=== PATIENT | female | born 2000 | race Caucasian/White ===

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

== ENCOUNTER 2022-04-10 13:47 | Outpatient (CLI) | payer BC, SELFPAY ==
[2022-04-10 16:59] LABS: Hepatitis B Surface Antigen* Negative (Negative)
[2022-04-10 17:08] LABS: HIV 1/2/P24 Combo Screen* Negative (Negative)
[2022-04-10 17:17] LABS: Hepatitis C Virus Antibody* Negative (Negative)
[2022-04-10 18:28] LABS: Chlamydia DNA Amplified* NOT DETECTED (No Detected); GC DNA Amplified* NOT DETECTED (No Detected)
[2022-04-13 00:54] LABS: Rapid Plasma Reagin (RPR) Non Reactive (Non Reactive)
== END 2022-04-10 13:48 | disposition home or self-care (01) ==
PROVIDERS: PCP Family Medicine; Visit Provider Registered Nurse
DX: Z11.3 Encounter for screening for infections with a predominantly sexual mode of transmission (principal); Z11.4 Encounter for screening for human immunodeficiency virus [HIV]
CPT/HCPCS: 86592; 86703; 86803; 87340; 87491; 87591

== ENCOUNTER 2023-02-25 10:49 | Emergency (ER) | payer BC, SELFPAY ==
[2023-02-25 10:56] VITALS: BP 116/87; PULSE 95; RESP 18; TEMP 37.2; O2SAT 98; BMI 21.3
--- NOTE | 2023-02-25 11:59 | ED_ITS ---
HPI - Abdominal Pain General Time Seen by Provider: 11:40 <Niyah Tinajero - Last Filed: 02/25/23 15:24> Date Seen: 02/25/23 <Niyah Tinajero - Kaden Filed: 02/25/23 15:24> Chief Complaint: Abdominal Pain <Niyah Tinajero - Last Filed: 02/25/23 15:24> Stated Complaint: Abdominal pain <Niyah Tinajero - Last Filed: 02/25/23 15:24> Time Seen by Provider: 02/25/23 10:58 <Niyah Tinajero - Last Filed: 02/25/23 15:24> Source: patient <Niyah Alfonso Filed: 02/25/23 15:24> Mode of arrival: ambulatory <Niyah Alfonso Filed: 02/25/23 15:24> Limitations: no limitations <Niyah Alfonso Filed: 02/25/23 15:24> History of Present Illness HPI narrative: Patient is a 22-year-old female presenting with left upper quadrant abd ominal pain radiating to the epigastric region beginning 12 hours ago, which has since progressively worsened this morning at 0600 with associated nausea, fatigue, subjective fevers, and chills. She tried eating this morning, but was not able to due to her nausea. Patient describes the pain as sharp and notes it radiates up into her chest making it difficult for her to take a deep breath. She has not taken any medication for her symptoms. She states ?laying in the position makes it feel better?. Patient has history of mucus in her stools and notes one episode of hematochezia last night approximately 10 hours ago. She states she feels constipated. Patient has history of chlamydia and syphilis which was treated 2 years ago. She is currently sexually active her last menstrual period was 1 week ago. She has an upcoming appointment on April 21 with [facility]. She denies any unexpected weight loss, vomiting, hematemesis, diarrhea, urinary urgency, frequency, vaginal discharge, rashes, dysuria, or any other complaints at this time. Patient drinks four glasses of wine and/or beer nightly and smokes 2 vapes a week since her mother 6 months ago. She has a history of anxiety and is medicated on Lexapro and hydroxyzine. <Niyah Tinajero - Last Filed: 02/25/23 15:24> Related Data Date of last menstrual period: 02/10/23 <Niyah Scopis Filed: 02/25/23 15:24> Patient : No <Niyah Tinajero [employer] Filed: 02/25/23 15:24> Home Medications: Home Medications Medication Instructions Recorded Confirmed etonogestrel 68 mg subdermal 1 implant subdermal ONCE 04/10/22 01/19/23 implant (Nexplanon) escitalopram oxalate 10 mg tablet 10 mg PO DAILY 01/19/23 01/19/23 hydroxyzine HCl 25 mg tablet mg PO 01/19/23 01/19/23 Previous Rx's Medication Instructions Recorded norethindrone (contraceptive) 0.35 0.35 mg PO QDAY #84 tabs 06/27/22 mg tablet (Ngozi) esomeprazole magnesium 20 mg 20 mg PO DAILY #30 caps 02/25/23 capsule,delayed release promethazine 25 mg tablet 25 mg PO TID #15 tabs 02/25/23 <Niyah Scopis Filed: 02/25/23 15:24> Allergies/Adverse Reactions: Allergies Allergy/AdvReac Type Severity Reaction Status Date / Time adhesive Allergy Unknown Rash Verified 02/25/23 14:35 latex Allergy Unknown Rash Verified 02/25/23 14:35 <Niyah Scopis Filed: 02/25/23 15:24> Review of Systems Const Reports: fever, chills, fatigue and malaise; Denies: change in weight <Niyah Scopis Filed: 02/25/23 15:24> GI Reports: abdominal pain, nausea, heartburn, constipation, blood in stool, mucus in stool and fatty stool; Denies: vomiting or diarrhea <Niyah Scopis Filed: 02/25/23 15:24> Denies: painful urination, urinary frequency, urinary urgency, urinary incontinence, blood in urine, difficulty voiding, vaginal bleeding, vaginal discharge or genital itching <Niyah Scopis Filed: 02/25/23 15:24> Musculo Denies: back pain <[facility] Filed: 02/25/23 15:24> Integ/Breast Denies: rash <[facility] Filed: 02/25/23 15:24> Neuro Reports: headache and dizziness <Niyah Tinajero - Last Filed: 02/25/23 15:24> Endo Reports: fatigue <Niyah Tinajero - Last Filed: 02/25/23 15:24> [facility] Medical History: Medical History Purposeful non-suicidal drug ingestion (2019) ?T50.902A - Poisoning by unspecified drugs, medicaments and biological substances, intentional self-harm, initial encounter (ICD-10) Migraine headache ?G43.909 - Migraine, unspecified, not intractable, without status migrainosus (ICD-10) Depression ?F32.A - Depression, unspecified (ICD-10) Asthma ?J45.909 - Unspecified asthma, uncomplicated (ICD-10) Anxiety ?F41.9 - Anxiety disorder, unspecified (ICD-10) History of sexually transmitted disease (11/24/20) ?Z86.19 - Personal history of other infectious and parasitic diseases (ICD- 10) <Niyah Tinajero - Last Filed: 02/25/23 15:24> Surgical History: Surgical History History of nasal septoplasty (03/28/17) ?Z98.890 - Other specified postprocedural states (ICD-10) History of tonsillectomy and adenoidectomy (03/28/17) ?Z90.89 - Acquired absence of other organs (ICD-10) <Niyah Tinajero - Last Filed: 02/25/23 15:24> Social History: Social History Smoking Status: Current every day smoker Do you use any of these nicotine containing products: E-Cigarettes Second hand tobacco smoke exposure: No How often do you have a drink containing alcohol: monthly or less How many standard drinks containing alcohol do you have on a typical day: 3 or 4 How often do you have six or more drinks on one occasion: Less than monthly AUDIT-C Alcohol total score: 3 Non-prescribed substance use: denies use service: No <Niyah Tinajero - Last Filed: 02/25/23 15:24> Exam Const: Vital Signs, click to edit/add: Vital Signs - 24 hr 02/25/23 10:56 02/25/23 13:27 02/25/23 16:18 Temperature 99 F Pulse Rate [Pulse Oximeter] 95 89 84 Respiratory Rate 18 16 Blood Pressure [Ri ght Upper Arm] 116/87 116/81 Pulse Oximetry 98 97 99 Oxygen Delivery Me thod Room Air Room Air Room Air <[facility] Last Filed: 02/25/23 15:24> Vital Signs, click to edit/add: Vital Signs - 24 hr 02/25/23 10:56 02/25/23 13:27 02/25/23 16:18 Temperature 99 F Pulse Rate [Pulse Oximeter] 95 89 84 Respiratory Rate 18 16 Blood Pressure [Ri ght Upper Arm] 116/87 116/81 Pulse Oximetry 98 97 99 Oxygen Delivery Me thod Room Air Room Air Room Air <Riley Odell MD - Last Filed: 02/25/23 16:57> Documenting provider has reviewed patient's vital signs: yes <[facility] Last Filed: 02/25/23 15:24> Common normals: no apparent distress, average body habitus, oriented x3 and alert <[facility] Last Filed: 02/25/23 15:24> General appearance: cooperative <[facility] Last Filed: 02/25/23 15:24> Nutritional appearance: thin <[facility] Filed: 02/25/23 15:24> HENMT: Common normals: normocephalic, head/scalp atraumatic, hearing grossly normal bilaterally, external ears normal, external nose normal, nasal mucous membranes and turbinates normal, oropharynx normal, dentition normal and gingiva normal; oral mucous membranes not moist (dry mucous membranes) <[facility] Last Filed: 02/25/23 15:24> Head and scalp: normocephalic and atraumatic <[facility] Last Filed: 02/25/23 15:24> Nose: external nose normal and nasal mucous membranes and turbinates normal <[facility] Last Filed: 02/25/23 15:24> External ear: external ears normal <[facility] Last Filed: 02/25/23 15:24> Eye: General eye: normal appearance of both eyes <Niyah KakaMobi Filed: 02/25/23 15:24> Neck & C-Spine: Common normals: no JVD <Niyah KakaMobi Filed: 02/25/23 15:24> Lymph: Lymphatic: no lymphadenopathy noted <[facility] Filed: 02/25/23 15:24> Resp: Common normals: normal respiratory effort, no retractions, no use of accessory muscles, clear to auscultation bilaterally and percussion normal <[facility] Filed: 02/25/23 15:24> Auscultation: clear to auscultation bilaterally <[facility] - Filed: 02/25/23 15:24> Percussion: percussion normal <[facility] Filed: 02/25/23 15:24> Cardio: Common normals: no JVD, regular rhythm, S1 normal heart sound, S2 normal heart sound, no gallops, no clicks, no murmurs, no rub and peripheral pulses 2+ throughout <Niyah KakaMobi Filed: 02/25/23 15:24> Rate: tachycardic <Niyah Filed: 02/25/23 15:24> Rhythm: regular rhythm <Niyah Filed: 02/25/23 15:24> Heart sounds: S1 normal and S2 normal <[facility] Filed: 02/25/23 15:24> Peripheral pulses: pulses 2+ throughout <Niyah KakaMobi Filed: 02/25/23 15:24> GI: Common normals: Normal to inspection, nondistended, normoactive bowel sounds present and soft to palpation <Niyah Scopis Filed: 02/25/23 15:24> Inspection: normal to inspection <Niyah Scopis Filed: 02/25/23 15:24> Auscultation: normoactive bowel sounds <Niyah Scopis Filed: 02/25/23 15:24> Palpation: soft and tender Details: epigastric and LUQ; not McBurney's point, not periumbilical, negative for obturator sign and negative for Rovsing's sign; no guarding, not rigid and no rebound tenderness present <Niyah Gall - Last Filed: 02/25/23 15:24> Percussion: normal to percussion <Niyah Gall - Last Filed: 02/25/23 15:24> : Common normals: no CVA tenderness <Niyah Gall - Last Filed: 02/25/23 15:24> Bladder/kidney exam: no CVA tenderness <Niyah Gall - Last Filed: 02/25/23 15:24> Back & Pelvis: Common normals: no CVA tenderness <Niyah Gall - Last Filed: 02/25/23 15:24> Neuro: Common normals: oriented x3 <Niyah [facility] - Last Filed: 02/25/23 15:24> Sensorium/orientation: alert <Niyah [facility] - Last Filed: 02/25/23 15:24> Speech: speech normal <Niyah Gall - Last Filed: 02/25/23 15:24> Psych: Common normals: mental status grossly normal, thought process normal, cooperative, affect normal, speech normal, activity/motor behavior normal, denies homicidal ideation and denies suicidal ideation <Niyah Gall - Last Filed: 02/25/23 15:24> Speech: normal speech <Niyah [facility] - Last Filed: 02/25/23 15:24> Thought process: normal thought process <Niyah Gall - Last Filed: 15:24> Skin: Common normals: no rashes or lesions noted <Niyah [facility] - Last Filed: 02/25/23 15:24> General skin exam: no rashes or lesions noted <Niyah [facility] - Last Filed: 02/25/23 15:24> Course Course ED Course: 11:15 - Patient evaluated by GLENN Finney. <Niyah [facility] - Last Filed: 02/25/23 15:24> Reevaluation(s) Time of Reevaluation #1: 14:03 <Riley Odell MD - Last Filed: 02/25/23 16:57> Reevaluation #1: Patient feelling better, still some pain, seems to have gone a little lower, agreed to proceed with CT. Discussed labs and current thinking. <Riley Odell MD - Last Filed: 02/25/23 16:57> Time of Reevaluation #2: 15:03 <Riley Odell MD - Last Filed: 02/25/23 16:57> Reevaluation #2: I spoke with the patient the CT scan showed no acute findings, she has a right-sided corpus luteum cyst, which is normal. Also lots of constipation, at this point I think home rest use of fluids, some MiraLax, and some Prilosec if there is a cast straight is type component, stopping alcohol or least decreasing it would also be appropriate and she was comfortable With this. We discussed follow-up, with her primary care physician and signs and symptoms of worsening which she should come back to the emergency room. <Riley Odell MD - Last Filed: 02/25/23 16:57> Vital Signs Vital signs: Initial Vital Signs Temperature 99 F 02/25/23 10:56 Temperature Source Temporal Artery Scan 02/25/23 10:56 Pulse Rate 95 02/25/23 10:56 Pulse Rhythm Regular 02/25/23 10:56 Respiratory Rate 18 02/25/23 10:56 Blood Pressure 116/87 02/25/23 10:56 Blood Pressure Mean 96 02/25/23 10:56 Blood Pressure Position Supine 02/25/23 10:56 Pulse Oximetry 98 02/25/23 10:56 Oxygen Delivery Method Room Air 02/25/23 10:56 Vital Signs Temperature 99 F 02/25/23 10:56 Pulse Rate 95 02/25/23 10:56 Respiratory Rate 18 02/25/23 10:56 Blood Pressure 116/87 02/25/23 10:56 Pulse Oximetry 98 02/25/23 10:56 Oxygen Delivery Method Room Air 02/25/23 10:56 Temperature 99 F 02/25/23 10:56 Pulse Rate 84 02/25/23 16:18 Respiratory Rate 16 02/25/23 16:18 Blood Pressure 116/81 02/25/23 16:18 Pulse Oximetry 99 02/25/23 16:18 Oxygen Delivery Method Room Air 02/25/23 16:18 <Niyah Tinajero - Last Filed: 02/25/23 15:24> Initial Vital Signs Temperature 99 F 02/25/23 10:56 Temperature Source Temporal Artery Scan 02/25/23 10:56 Pulse Rate 95 02/25/23 10:56 Pulse Rhythm Regular 02/25/23 10:56 Respiratory Rate 18 02/25/23 10:56 Blood Pressure 116/87 02/25/23 10:56 Blood Pressure Mean 96 02/25/23 10:56 Blood Pressure Position Supine 02/25/23 10:56 Pulse Oximetry 98 02/25/23 10:56 Oxygen Delivery Method Room Air 02/25/23 10:56 Vital Signs Temperature 99 F 02/25/23 10:56 Pulse Rate 95 02/25/23 10:56 Respiratory Rate 18 02/25/23 10:56 Blood Pressure 116/87 02/25/23 10:56 Pulse Oximetry 98 02/25/23 10:56 Oxygen Delivery Method Room Air 02/25/23 10:56 Temperature 99 F 02/25/23 10:56 Pulse Rate 84 02/25/23 16:18 Respiratory Rate 16 02/25/23 16:18 Blood Pressure 116/81 02/25/23 16:18 Pulse Oximetry 99 02/25/23 16:18 Oxygen Delivery Method Room Air 02/25/23 16:18 <Riley Odell MD - Last Filed: 02/25/23 16:57> Medications Administered Medications: Discontinued Medications Generic Name Dose Route Start Last Admin Trade Name Freq PRN Reason Stop Dose Admin Sodium Chloride 1,000 mls @ 1,000 mls/hr 02/25/23 12:15 02/25/23 13:04 0.9 % Sodium Chloride 1000 Ml IV 02/25/23 13:14 Infused .Q1H AMIRA Infusion Sodium Chloride 1,000 mls @ 1,000 mls/hr 02/25/23 12:15 02/25/23 13:56 0.9 % Sodium Chloride 1000 Ml IV 02/25/23 13:14 Infused .Q1H AMIRA Infusion Morphine Sulfate 2 mg 02/25/23 12:01 02/25/23 12:38 Morphine 2 Mg/Ml Inj IVP 02/25/23 12:02 2 mg ONCE ONE Administration Morphine Sulfate 2 mg 02/25/23 13:46 02/25/23 13:54 Morphine 2 Mg/Ml Inj IVP 02/25/23 13:47 2 mg ONCE ONE Administration Ondansetron HCl 4 mg 02/25/23 12:01 02/25/23 12:38 Ondansetron 2 Mg/Ml Inj IVP 02/25/23 12:02 4 mg ONCE ONE Administration Pantoprazole Sodium 40 mg 02/25/23 12:01 02/25/23 12:38 Pantoprazole Sodium 40 Mg Inj IVP 02/25/23 12:02 40 mg ONCE ONE Administration <Niyah Tinajero - Last Filed: 02/25/23 15:24> Discontinued Medications Generic Name Dose Route Start Last Admin Trade Name Sudeep PRN Reason Stop Dose Admin Sodium Chloride 1,000 mls @ 1,000 mls/hr 02/25/23 12:15 02/25/23 13:04 0.9 % Sodium Chloride 1000 Ml IV 02/25/23 13:14 Infused .Q1H AMIRA Infusion Sodium Chloride 1,000 mls @ 1,000 mls/hr 02/25/23 12:15 02/25/23 13:56 0.9 % Sodium Chloride 1000 Ml IV 02/25/23 13:14 Infused .Q1H AMIRA Infusion Morphine Sulfate 2 mg 02/25/23 12:01 02/25/23 12:38 Morphine 2 Mg/Ml Inj IVP 02/25/23 12:02 2 mg ONCE ONE Administration Morphine Sulfate 2 mg 02/25/23 13:46 02/25/23 13:54 Morphine 2 Mg/Ml Inj IVP 02/25/23 13:47 2 mg ONCE ONE Administration Ondansetron HCl 4 mg 02/25/23 12:01 02/25/23 12:38 Ondansetron 2 Mg/Ml Inj IVP 02/25/23 12:02 4 mg ONCE ONE Administration Pantoprazole Sodium 40 mg 02/25/23 12:01 02/25/23 12:38 Pantoprazole Sodium 40 Mg Inj IVP 02/25/23 12:02 40 mg ONCE ONE Administration <Riley Odell MD - Last Filed: 02/25/23 16:57> MDM - Abdominal Pain MDM Narrative Medical decision making narrative: Patient is a 22-year-old female with a pertinent history of anxiety, presenting with left upper quadrant and epigastric pain beginning last night which has since progressively worsened this morning at 6:00 a.m. with associated nausea, lightheadedness, chills, and fatigue. Patient has history of mucus in her stools and had 1 episode of hematochezia last night. Denies any known history of Crohn's or ulcerative colitis. Patient drinks 4 glasses of wine and/or beer nightly. Admits to drinking excessively this past weekend. On exam, patient has epigastric tenderness and mild LUQ tenderness on palpation. No rebound tenderness or guarding appreciated. No organomegaly. No suprapubic tenderness or CVA tenderness noted. Plan is to start patient on fluids, zofran, and morphine for pain relief. CBC showed mildly elevated WBCs. CMP was significant for 2:1 AST:ALT ratio consistent with a likely gastritis secondary to alcohol consumption. Urine negative. CT abdomen unremarkable. Plan is to follow-up with [facility] at her upcoming appointment or PCP. Discussed the importance of limiting her alcohol intake, spicy foods, and NSAIDS. Return precautions advised and patient is in agreement and understands the plan. <Niyah Tinajero - Last Filed: 02/25/23 15:24> Differential Diagnosis Differential diagnosis: Likely constipation and gastroenteritis <Niyah Tinajero - Last Filed: 02/25/23 15:24> Medical Records Attestation: I reviewed the patient's medical records. <Niyah Tinajero - Last Filed: 02/25/23 15:24> Lab Data Attestation: I reviewed the patient's lab results. <Niyah Tinajero - Last Filed: 02/25/23 15:24> Labs: Lab Results 02/25/23 02/25/23 Range/Units 12:10 12:20 WBC 12.31 H (4.50-11.00) K/uL RBC 5.35 H (4.00-5.20) m/uL Hgb 14.9 (12.0-16.0) gm/dL Hct 45.7 (33.0-51.0) % MCV 85 (80-100) fL MCH 28 (26-34) pg MCHC 33 (32-36) gm/dL RDW Coeff of Penelope 14.4 (11.5-15.5) % Plt Count 381 (140-440) K/uL Neut % (Auto) 66.4 (42.0-72.0) % Lymph % (Auto) 26.6 (20-44) % [place] % (Auto) 5.3 (0.0-11.0) % Eos % (Auto) 0.9 (0.0-7.0) % Baso % (Auto) 0.4 (0.0-3.0) % Neut # (Auto) 8.20 H (1.7-7.0) K/uL Lymph # (Auto) 3.30 H (0.90-2.90) K/uL [place] # (Auto) 0.70 (0.00-0.90) K/UL Eos # (Auto) 0.10 (0.00-0.50) K/uL Baso # (Auto) 0.00 (0.00-0.30) K/uL Abs Immat Gran (auto) 0.00 (0.00-0.30) K/uL Imm/Tot Granulo (auto) 0.4 % Diff Slide Review Acceptable Review (Acceptable) Sodium 139 (135-149) mmol/L Potassium 4.1 (3.6-5.1) mmol/L Chloride 100 (96-114) mmol/L Carbon Dioxide 23 (20-32) mmol/L Anion Gap 16 H (7-15) mEq/L BUN 12 (5-24) mg/dL Creatinine 0.6 (0.5-1.5) mg/dL Estimated Creat Clear 123.72 Estimated GFR 132 ml/min Glucose 109 (60-115) mg/dL Calcium 10.3 (8.4-10.6) mg/dL Total Bilirubin 0.9 (0.1-1.5) mg/dL Direct Bilirubin 0.2 (0.0-0.5) mg/dL AST 42 H (12-35) U/L ALT 22 (4-35) U/L Alkaline Phosphatase 65 (40-150) U/L Total Protein 9.7 H (6.0-8.3) g/dL Albumin 5.7 H (3.3-5.0) g/dL Lipase 67 (23-300) U/L HCG, Qual Negative (Negative) Urine Color Yellow (Yellow) Urine Appearance Slightly Cloudy A (Clear) Urine pH 7.5 (5.0-8.5) Ur Specific [place] 1.015 (1.000-1.030) Urine Protein Negative (Negative) Urine Glucose (UA) Negative (Negative) Urine Ketones Negative (Negative) Urine Blood Negative (Negative) Urine Nitrite Negative (Negative) Urine Bilirubin Negative (Negative) Urine Urobilinogen 0.2 (0.2-1.0) Ur Leukocyte Esterase Negative (Negative) Urine RBC 0-2 (0-2) Urine WBC 0-2 (0-5) Urine WBC Clumps None (None) Ur Squamous Epith Cells Few (None-Few) Urine Bacteria Few A (None) Ur Drug Screen Comment See Note Ethyl Alcohol < 0.01 L (0.01-0.03) % <Niyah Tinajero - Last Filed: 02/25/23 15:24> Lab Results 02/25/23 02/25/23 Range/Units 12:10 12:20 WBC 12.31 H (4.50-11.00) K/uL RBC 5.35 H (4.00-5.20) m/uL Hgb 14.9 (12.0-16.0) gm/dL Hct 45.7 (33.0-51.0) % MCV 85 (80-100) fL MCH 28 (26-34) pg MCHC 33 (32-36) gm/dL RDW Coeff of [place]elope 14.4 (11.5-15.5) % Plt Count 381 (140-440) K/uL Neut % (Auto) 66.4 (42.0-72.0) % Lymph % (Auto) 26.6 (20-44) % [place] % (Auto) 5.3 (0.0-11.0) % Eos % (Auto) 0.9 (0.0-7.0) % Baso % (Auto) 0.4 (0.0-3.0) % Neut # (Auto) 8.20 H (1.7-7.0) K/uL Lymph # (Auto) 3.30 H (0.90-2.90) K/uL [place] # (Auto) 0.70 (0.00-0.90) K/UL Eos # (Auto) 0.10 (0.00-0.50) K/uL Baso # (Auto) 0.00 (0.00-0.30) K/uL Abs Immat Gran (auto) 0.00 (0.00-0.30) K/uL Imm/Tot Granulo (auto) 0.4 % Diff Slide Review Acceptable Review (Acceptable) Sodium 139 (135-149) mmol/L Potassium 4.1 (3.6-5.1) mmol/L Chloride 100 (96-114) mmol/L Carbon Dioxide 23 (20-32) mmol/L Anion Gap 16 H (7-15) mEq/L BUN 12 (5-24) mg/dL Creatinine 0.6 (0.5-1.5) mg/dL Estimated Creat Clear 123.72 Estimated GFR 132 ml/min Glucose 109 (60-115) mg/dL Calcium 10.3 (8.4-10.6) mg/dL Total Bilirubin 0.9 (0.1-1.5) mg/dL Direct Bilirubin 0.2 (0.0-0.5) mg/dL AST 42 H (12-35) U/L ALT 22 (4-35) U/L Alkaline Phosphatase 65 (40-150) U/L Total Protein 9.7 H (6.0-8.3) g/dL Albumin 5.7 H (3.3-5.0) g/dL Lipase 67 (23-300) U/L HCG, Qual Negative (Negative) Urine Color Yellow (Yellow) Urine Appearance Slightly Cloudy A (Clear) Urine pH 7.5 (5.0-8.5) Ur Specific [place] 1.015 (1.000-1.030) Urine Protein Negative (Negative) Urine Glucose (UA) Negative (Negative) Urine Ketones Negative (Negative) Urine Blood Negative (Negative) Urine Nitrite Negative (Negative) Urine Bilirubin Negative (Negative) Urine Urobilinogen 0.2 (0.2-1.0) Ur Leukocyte Esterase Negative (Negative) Urine RBC 0-2 (0-2) Urine WBC 0-2 (0-5) Urine WBC Clumps None (None) Ur Squamous Epith Cells Few (None-Few) Urine Bacteria Few A (None) Ur Drug Screen Comment See Note Ethyl Alcohol < 0.01 L (0.01-0.03) % <Riley Odell MD - Last Filed: 02/25/23 16:57> Discharge Plan Discharge Clinical Impression: At risk alcohol consumption, Gastritis, Nausea & vomiting, Abdominal pain, Unspecified ovarian cyst, right side, Irritable bowel syndrome <Niyah Tinajero - Last Filed: 02/25/23 15:24> Patient Disposition: Home, Self-Care <Niyah Hatch Last Filed: 02/25/23 15:24> Condition: Stable <Niyah Tinajero - Last Filed: 02/25/23 15:24> Instructions: Ovarian Cyst (ED), Gastritis (ED), Irritable Bowel Syndrome (DC), Acute Nausea and Vomiting (DC), Abdominal Pain (ED) <Niyah Tinajero Mamie Last Filed: 02/25/23 15:24> Additional Instructions: We will discharge him home, you continue with lots of fluids, MiraLax 1 g with 20 oz of water twice daily for the next couple days, to promote evacuation of years stool. Take the Prilosec 20 mg daily, this is [id number], please take this for the next month, if he finds cheaper with your insurance I did give you prescription also. Decrease her abstain from alcohol use, as this I think promoted the stomach issues. Would try to use the phenergan as needed, this will make you tired. Would ask you also to follow up with her primary care physician discussed. Within the next week. Off work for 24 hours as written by myself. The ovarian systems is normal, this is what we call a corpus luteum cyst. Return if signs and symptoms of worsening as discussed. <Niyah Tinajero - Last Filed: 02/25/23 15:24> Activity Level: Light activity <Niyah Tinajero - Last Filed: 02/25/23 15:24> Light activity <Riley Odell MD - Last Filed: 02/25/23 16:57> Prescriptions: New promethazine 25 mg tablet 25 mg PO TID Qty: 15 0RF esomeprazole magnesium 20 mg capsule,delayed release(DR/EC) 20 mg PO DAILY Qty: 30 1RF No Action norethindrone (contraceptive) [Ngozi] 0.35 mg tablet 0.35 mg PO QDAY Qty: 84 3RF escitalopram oxalate 10 mg tablet 10 mg PO DAILY hydroxyzine HCl 25 mg tablet PO Nexplanon 68 mg implant 1 implant subdermal ONCE Rx Instructions: as a single dose <Niyah Hatch Filed: 02/25/23 15:24> Follow Up/Referrals: Miguel Angel Noriega MD [Primary Care Provider] - <Niyah Hatch Last Filed: 02/25/23 15:24> Stand Alone Forms: My[facility] Info Instructions <Niyah Tinajero - Last Filed: 02/25/23 15:24>
[2023-02-25] MEDS: 0.9 % SODIUM CHLORIDE 1000 ml 1,000 ML IV ×2 (12:20→13:04)
[2023-02-25 12:33] LABS: Basophils Percent Auto 0.4 % (0.0-3.0); Eosinophils Percent Auto 0.9 % (0.0-7.0); Hematocrit 45.7 % (33.0-51.0); Hemoglobin* 14.9 gm/dL (12.0-16.0); Immature Granulocytes Pct Auto 0.4 %; Lymphocytes Percent Auto 26.6 % (20-44); Mean Corpuscular HGB Conc 33 gm/dL (32-36); Mean Corpuscular Hemoglobin 28 pg (26-34); Mean Corpuscular Volume 85 fL (80-100); Monocytes Percent Auto 5.3 % (0.0-11.0); Neutrophils Percent Auto 66.4 % (42.0-72.0); Platelet Count* 381 K/uL (140-440); RDW Coefficient of Variation % 14.4 % (11.5-15.5); Red Blood Count 5.35 m/uL (4.00-5.20); White Blood Count* 12.31 K/uL (4.50-11.00)
[2023-02-25] MEDS: ONDANSETRON 2 MG/ML inj 4 MG IVP (12:38)
[2023-02-25] MEDS: PANTOPRAZOLE SODIUM 40 MG INJ IVP (12:38)
[2023-02-25] MEDS: MORPHINE 2 MG/ML inj IVP ×2 (12:38→13:54)
[2023-02-25 12:50] LABS: Albumin* 5.7 g/dL (3.3-5.0); Chloride* 100 mmol/L (96-114); Sodium* 139 mmol/L (135-149)
[2023-02-25 12:50] LABS: Appearance Urine Slightly Cloudy (Clear); Bilirubin Urine Negative (Negative); Blood Urine Negative (Negative); Color Urine Yellow (Yellow); Glucose Urine Negative (Negative); Ketones Urine Negative (Negative); Leukocyte Esterase Urine Negative (Negative); Nitrite Urine Negative (Negative); Protein Urine Negative (Negative); Specific Gravity Urine 1.015 (1.000-1.030); Urobilinogen Urine 0.2 (0.2-1.0); pH Urine 7.5 (5.0-8.5)
[2023-02-25 12:51] LABS: HCG Qualitative Serum* Negative (Negative); Potassium* 4.1 mmol/L (3.6-5.1)
[2023-02-25 12:53] LABS: Alkaline Phosphatase* 65 U/L (40-150); Anion Gap 16 mEq/L (7-15); Aspartate Amino Transferase* 42 U/L (12-35); Bilirubin Direct* 0.2 mg/dL (0.0-0.5); Bilirubin Total* 0.9 mg/dL (0.1-1.5); Blood Urea Nitrogen* 12 mg/dL (5-24); Calcium* 10.3 mg/dL (8.4-10.6); Carbon Dioxide* 23 mmol/L (20-32); Creatinine* 0.6 mg/dL (0.5-1.5); Est. Creatinine Clearance* 123.72; Estimated Glomerular Filt Rate 132 ml/min; Glucose* 109 mg/dL (60-115); Lipase* 67 U/L (23-300); Total Protein* 9.7 g/dL (6.0-8.3)
[2023-02-25 12:54] LABS: Alanine Aminotransferase* 22 U/L (4-35); Ethanol* < 0.01 % (0.01-0.03)
[2023-02-25 13:01] LABS: RBC Urine 0-2 (0-2); Squamous Epithelial Cell Urine Few (None-Few); WBC Urine 0-2 (0-5)
[2023-02-25 13:02] LABS: Bacteria Urine Few
[2023-02-25 13:09] LABS: Slide Review Reflex Yes
[2023-02-25 13:10] LABS: Slide Review Acceptable Review (Acceptable)
--- NOTE | 2023-02-25 13:19 | CRLHL7_ITS ---
For Patients: As a result of the Century Cures Act, medical imaging exams and procedure reports are released immediately into your electronic medical record. You may view this report before your referring provider. If you have questions, please contact your health care provider. INDICATION: Left upper quadrant abdominal pain, nausea/vomiting x 12 hours. TECHNIQUE: CT of the abdomen and pelvis with 58 cc Isovue 370 IV contrast. Coronal and sagittal reconstructions. COMPARISON: Pelvic ultrasound 06/14/2019. FINDINGS: The liver, gallbladder, spleen, pancreas, and adrenal glands are negative. No biliary dilation. Portal veins are patent. Symmetric enhancement of the kidneys. No hydronephrosis or ureteral dilation. No obstructing urinary calculi identified. The bladder is normal in appearance. Uterus is unremarkable. There is a 2.5 cm rim enhancing cystic lesion in the right adnexa which likely represents a corpus luteum (series 2, image 109). No small bowel dilation. Large amount of stool throughout the colon. The appendix is negative and best seen on series 4 images 36-38. No intraperitoneal free air or fluid. No lymphadenopathy. The bones are unremarkable. The lung bases are clear. IMPRESSION: 1. No acute findings in the abdomen or pelvis. 2. Large amount of stool. 3. Right adnexal cyst. Please note that all CT scans at this facility use dose modulation, iterative reconstruction, and/or weight-based dosing when appropriate to reduce radiation dose to as low as reasonably achievable. Dictated by Klaudia Burger MD @ 02/25/2023 3:40:26 PM (Electronically Signed)
[2023-02-25 13:27] VITALS: PULSE 89; O2SAT 97
[2023-02-25 16:18] VITALS: BP 116/81; PULSE 84; RESP 16; O2SAT 99
[2023-02-25 23:49] LABS: Amphetamine Screen Urine Negative (Negative); Barbiturate Screen Urine Negative (Negative); Benzodiazepines Screen Urine Negative (Negative); Cannabinoid Screen Urine Negative (Negative); Cocaine Screen Urine Negative (Negative); Methadone Screen Urine Negative (Negative); Methamphetamines Screen Urine Negative (Negative); Opiate Screen Urine Negative (Negative); Oxycodone Screen Urine Negative (Negative); Phencyclidine Screen Urine Negative (Negative); Tricyclic Antidepressant Urine Negative (Negative)
== END 2023-02-25 16:19 | disposition home or self-care (01) ==
PROVIDERS: Emergency Provider Family Medicine; PCP Family Medicine
DX: K29.70 Gastritis, unspecified, without bleeding (principal); R58 Hemorrhage, not elsewhere classified; N83.201 Unspecified ovarian cyst, right side; F10.20 Alcohol dependence, uncomplicated
CPT/HCPCS: 36415; 74177; 80048; 80076; 80306; 81001; 82077; 83690; 84703; 85025; 87086; 94761; 96374; 96375; 99284; C9113; J2270; J2405; J7030; Q9967

== ENCOUNTER 2023-06-25 14:30 | Outpatient (CLI) | payer BC, SELFPAY ==
[2023-06-25 18:58] LABS: Chlamydia DNA Amplified* NOT DETECTED (No Detected); GC DNA Amplified* NOT DETECTED (No Detected)
== END 2023-06-25 14:31 | disposition home or self-care (01) ==
LOC: NFLDREF 14:32
PROVIDERS: PCP Family Medicine; Visit Provider Registered Nurse
DX: Z11.3 Encounter for screening for infections with a predominantly sexual mode of transmission (principal)
CPT/HCPCS: 87491; 87591

== ENCOUNTER 2024-02-03 18:43 | Outpatient (CLI) | payer BC, SELFPAY | END 2024-02-03 18:44 | disposition home or self-care (01) | LOC: NFLDREF 18:44 | PROVIDERS: PCP Family Medicine; Visit Provider Registered Nurse | DX: Z11.3 Encounter for screening for infections with a predominantly sexual mode of transmission (principal) | CPT/HCPCS: 87491; 87591 ==

== ENCOUNTER 2024-07-21 17:11 | Emergency (ER) | payer BC, SELFPAY ==
[2024-07-21 17:15] VITALS: BP 130/78; PULSE 99; RESP 18; TEMP 36.9; O2SAT 100; BMI 22.1
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
[2024-07-21 19:11] VITALS: BP 114/74; PULSE 77; RESP 18; TEMP 36.8; O2SAT 99
== END 2024-07-21 19:23 | disposition home or self-care (01) ==
LOC: ED 19:21
PROVIDERS: Emergency Provider Emergency Medicine Emergency Medical Services; PCP Family Medicine
DX: S00.81XA Abrasion of other part of head, initial encounter (principal); S00.511A Abrasion of lip, initial encounter; S00.31XA Abrasion of nose, initial encounter; S60.413A Abrasion of left middle finger, initial encounter; V19.88XA Pedal cyclist (driver) (passenger) injured in other specified transport accidents, initial encounter
CPT/HCPCS: 70486; 99283; 99284

== ENCOUNTER 2024-08-27 09:02 | Day surgery (SDC) | payer BC, SELFPAY ==
--- OUTSIDE RECORDS SUMMARY | 2024-08-27 09:04 | XMS_ITS | Continuity of Care Document ---
Author Organization [place] [facility] Address [address] [place] [address] Assessment Encounter Date Assessment Date Assessment LastModified by Organization Details LastModified Time 08/24/2024 08/24/2024 ASSESSMENT: Patient is a good candidate for conservative care and the prognosis is for a favorable outcome that achieves the patients' goals. We discussed etiology, activity modifications, home care, and other treatment options. Initially, it is recommended that the patient receive in-office treatment 1 times per week for 8 weeks at which time a re-evaluation will be performed to determine an appropriate change in plan. Initially, treatment will focus on joint manipulation to restore range of motion and reduce pain. We will slowly progress to therapeutic exercises and activities to improve function, strength, and stability may also be used as warranted. If the patient is not responding as expected, more invasive procedures will be discussed along with a referral. All considerations above were discussed with the patient and questions answered to satisfaction. If the patient should have any additional questions, or should the condition evolve or worsen, the patient should not hesitate to contact our office. [email or web address] Not available 08/24/2024 17:11:07 Plan of Treatment Reminders Order Date Submit Date Provider Last Modified By Organization Details Last Modified Time Details Appointments None record ed. Lab None record ed. Referral None record ed. Procedures None record ed. Surgeries None record ed. Imaging None record ed. Medication Orders None record ed. Patient TargetsNo targets recorded. Patient InstructionsNo instructions recorded. Reason for Referral None Reported. 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 Procedures Surgical History Date Name Laterality Status Provider Name and Address Organization Details Recorded Time 70789: Spinal manipulation , 3 to 4 regions completed Dereje Schwarz [place] [address], [place], [address], [facility] 08/24/2024 17:11:57 Imaging Results None recorded. Procedure Notes None recorded. Medical Equipment None Reported. Vitals None Recorded Social History None recorded. 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 Family History Nothing Reported. Medical History No medical history recorded. Gynecological HistoryNo gynecological history recorded. Obstetrics History GPAL:G 0 P 0 0 0 0 Past Encounters Encounter ID Performer Location Encounter Start Date Encounter Closed Date Diagnosis/Indication Diagnosis SNOMED-CT Code Diagnosis ICD10 Code Diagnosis Note [id number] Dereje Schwarz [facility] [address] [place] [address] 08/24/2024 16:14:40 08/24/2024 18:43:17 Lumbar segmental dysfunction 734850158 M99.03 Low back pain 087182385 M54.50 Somatic dy sfunction of sacral spine 048611879 M99.04 Thoracic s egmental dysfunction 306585074 M99.02 Health Concerns Section Related Observation LastModified by Organization Detai ls LastModified Time None Recorded Concern Status LastModified by Organization Details LastModified Time None Recorded Payers Encounter Date Sequence Insurance Name Policy Number Policy Garcia Covered Member ID Garcia Member ID Guarantor Name 08/24/2024 1 [place] [id number] Shanta Beauchamp [id number] Shanta Beauchamp Notes Date Note Type Note Provider Name and Address Organization Details Recorded Time 08/24/2024 text/html HPI - Lumbar SpineReported bypatient.Location: left Quality:aching Severity:moderate Timing:morning Aggravating Factors:walking; lifting; carrying; twisting Alleviating Factors:rest Dereje Schwarz DC [address], [place], [address], [facility] 08/24/2024 17:12:09 OBGyn Episode No OBEpisode recorded.
--- OUTSIDE RECORDS SUMMARY | 2024-08-27 09:04 | XMS_ITS | Clinical Summary ---
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 30 Tablet Active Active Problems Problem Noted Date Diagnosed Date 08/05/2024 Overview (08/13/2024): Estimated Date of Delivery: 03/29/25 Patient's last menstrual period was 06/22/2024 (exact date). GBS: 28wk labs: Last Tdap: 02/08/2015 Last Flu vaccine: 03/19/19 OB Labs: ABORH Date Value Ref Range Status 08/11/2024 A Rh Positive Final ANTIBODY SCREEN Date Value Ref Range Status 08/11/2024 Negative Negative Final TREPONEMA PALLIDUM Date Value Ref Range Status 08/11/2024 Non-Reactive Non-Reactive Final RUBELLA AB (IGG), IMMUNE STATUS Date Value Ref Range Status 08/11/2024 2.49 Index Final Comment: Index Interpretation ----- <0.90 Not consistent with immunity 0.90-0.99 Equivocal > or = 1.00 Consistent with immunity HEPATITIS B SURFACE ANTIGEN Date Value Ref Range Status 08/11/2024 NON-REACTIVE NON-REACTIVE Final HEPATITIS C ANTIBODY Date Value Ref Range Status 08/11/2024 NON-REACTIVE NON-REACTIVE Final HIV AG/AB, 4TH GEN Date Value Ref Range Status 08/11/2024 NON-REACTIVE NON-REACTIVE Final VARICELLA ZOSTER VIRUS ANTIBODY (IGG) Date Value Ref Range Status 08/11/2024 <1.00 (L) S/CO Final Comment: Signal to Cut-off S/CO Interpretation --------- <1.00 Negative - Antibody not detected > or = 1.00 Positive - Antibody detected HEMOGLOBIN Date Value Ref Range Status 08/11/2024 12.6 11.7 - 15.5 g/dL Final PLATELET COUNT Date Value Ref Range Status 08/11/2024 327 140 - 400 Thousand/uL Final CHLAMYDIA PROBE Date Value Ref Range Status 08/11/2024 Negative Final N GONORRHOEAE PROBE Date Value Ref Range Status 08/11/2024 Negative Final Allergies Allergen Reactions Latex Rash and Itching Adhesive Tape-Silicones Rash and Itching OB History Para Term AB Living 1 0 0 0 0 0 SAB IAB Ectopic Multiple Live Births 0 0 0 0 0 # Outcome Date GA Lbr John/2nd Weight Sex Type Anes PTL Lv 1 Current Past Medical History: . Date Migraine headache 2014 STD (sexually transmitted disease) 2020 chlamydia Past Surgical History: . Laterality Date RECONSTRUCTION OF NOSE 2015 TONSIL AND ADENOIDECTOMY 2015 #1 Problems (from 08/05/24 to present) No problems associated with this episode. Trisha Gibson RN ....08/05/2024 2:25 PM Estimated Date of Delivery Comme nts Yes 03/29/2025 Based on last me nstrual period of 06/22/2024 (Exact Date) Encounters Date Type Department Care Team Description 08/27/2024 Nurse Triage [facility] Centralized Nurse Triage Pcp, No Problem 08/11/2024 3:15 PM CDT Orders Only [facility] [address] [place] [address] Lab, [facility] 08/11/2024 Travel 08/10/2024 Nurse Triage [facility] [address] [place] [address] Suzanne Li MD Vomiting, less than 20 weeks 08/10/2024 Telephone [facility] [address] [place] [address] Suzanne Li MD Letter For Work (for nausea and vomiting during ) 08/05/2024 1:00 PM CDT Phone OB Encounter [facility] [address] [place] [address] Education (RN Ob Intake ) 08/05/2024 Travel 07/29/2024 10:00 AM CDT Office Visit [facility] [address] [place] [address] Matilda Gibbs DO Confirmation (Last menstrual cycle 06/22/2024 Pt reports regular periods prior to missed cycle) 07/29/2024 Travel from Last 3 Months Family History Medical History Relation Name Comments [facility] Father Ra partial blindness Maternal Uncle 1 Anjel Hypertension Mother Migraines Mother Stroke Mother ectopic Sister 1 Amy [facility] Sister 2 Krystal Relation Name Status Comments Brother Eric Alive Father Ra Alive Maternal Uncle 1 Anjel Alive Maternal Uncle 2 Sonido Alive Mother Sister 1 Amy Alive Sister 2 Krystal Alive Social History Tobacco Use Types Packs/Day Years Used Date Smoking Tobacco: Never Smokeless Tobacco: Never Tobacco Cessation:Counseling Given: Not Answered Alcohol Use Standard Drinks/Week Comments Not Currently 0 (1 standard drink = 0.6 oz pur e alcohol) PHQ-2 Answer Date Recorded PHQ-2 TOTAL SCORE 0 08/05/2024 Estimated Date of Delivery Comme nts Yes 03/29/2025 Based on last me nstrual period of 06/22/2024 (Exact Date) Sex and Gender Information Value Date Recorded Sex Assigned at Not on file Legal Sex Female 2:49 PM CDT Gender Identity Not on file Sexual Orientation Not on file Obstetrics History Para Term AB IAB SAB Ectopic Multiple Livin g Live Births 1 Date Outcome GA Total Labor Labor/2nd/3rd Weight Sex Type Anes PTL Catrachita A1 A5 Name Clin Current Summary Episode Dates Number of Fetuses Estimated Date of Delivery 08/05/2024 - Present (08/27/2024) 03/29/2025 (set by Trisha Gibson, RICHARD on 08/05/2024 based on Last Menstrual Period on 06/22/2024 (Exact Date)) Dating Summary Based On TASNEEM GA Diff Last Menstrual Period on 06/22/2024 (Exact Date) 03/29/2025 Working Alternate TASNEEM Entry 03/29/2025 Same Notes Progress Notes - Phone OB En counter - 08/05/2024 - GA:6w2d 08/05/2024 - 6w2d - Trisha Gibson, RICHARD Images from the original note were not included. Virtual Visit: As the provider for this telephone service, I attest that I introduced myself to the patient, provided my credentials, disclosed my location, and determined that, based on a review of the patient's chart and/or a discussion with members of the patient's treatment team, a telephone visit is an appropriate and effective means of providing this service. The patient and I mutually agree that this visit is appropriate for telephone as well. Patient location (originating site city/state): [place], [place] Provider location (distant site city/state): [place], [place] Video/Phone start time (include am/pm designation): 1:08 PM Video/Phone end time (include am/pm designation): 2:18 PM SUBJECTIVE: Shanta Beauchamp is a 24 y.o. female, , who presents for OB education and intake Had positive test at home. This was Unplanned, Desired. Patient was not on contraception. Date Reliability: definite TASNEEM based on LMP: Estimated Date of Delivery: 03/29/25 Current symptoms include: Nausea:Yes Vomiting:Yes - mild, experiencing more nausea. She will vomit a couple times every couple of days. Breast tenderness:Yes Vaginal bleeding:Yes - over one week ago. Reports it as some discharge in her underwear Vaginal discharge:No Pelvic cramping:Yes - has been sudden. Feels like a period cramp. 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 Name of Partner or Father of baby: Florentino Rodriguez. MENSTRUAL HISTORY: Patient's last menstrual period was 06/22/2024 (exact date).: Cycle Regularity: regular, every 28-30 days Past Medical History: . Date Migraine headache 2014 STD (sexually transmitted disease) 2020 chlamydia OB History Para Term AB Living 1 SAB IAB Ectopic Multiple Live Births # Outcome Date GA Lbr John/2nd Weight Sex Type Anes PTL Lv 1 Current 5P'S SUBSTANCE ABUSE SCREEN FOR ALCOHOL, DRUGS AND TOBACCO: Did any of your parents have a problem with using alcohol or drugs? Her father used Meth. She thinks he has gotten better. She reports he isn't in her life much anymore. Do any of your friends (peers) have problems with drug or alcohol use? Their friends vape and smoke cigarettes Does your partner have a problem with drug or alcohol use? No Before you knew you were , how often did you drink beer, wine, wine coolers or liquor or use any kind of drug? Frequently In the past month, how often did you drink beer, wine, wine coolers or liquor or use any kind of drug? Frequently How much did you smoke, vape or use tobacco or nicotine in any form before you knew you were ? Current Everyday User Genetic Screening Genetic Screening/Teratology Counseling- Includes patient, baby's father, or anyone in either family with: Patient's age 35 years or older as of estimated date of delivery: No Thalassemia (Mozambican, Sierra Leonean, Mediterranean, or background): MCV less than 80: No Neural tube defect (Meningomyelocele, Spina bifida, or Anencephaly): No Congenital heart defect: No Down syndrome: No Yoan-Sachs (Ashkenazi Evangelical, Cajun, Polish [place]): No Allison disease (Ashkenazi Evangelical): No Familial dysautonomia (Ashkenazi Evangelical): No Sickle cell disease or trait (): No Hemophilia or other blood disorders: No Muscular dystrophy: No Cystic fibrosis: No Spencer's chorea: No Intellectual disability and/or autism: No Other inherited genetic or chromosomal disorder: No Maternal metabolic disorder (eg. Type 1 diabetes, PKU): No Patient or baby's father had child with defects not listed above: No Recurrent loss, or a stillbirth: No Medications (including supplements, vitamins, herbs, or OTC drugs)/illicit/recreational drugs/alcohol since last menstrual period: Yes If yes, agent(s) and strength/dosage: vitamin and doxylamine 25 mg daily 07/29/2024 10:00 AM 08/05/2024 1:00 PM PHQ Depression Screening Date of PHQ exam (doc flow) 07/29/2024 08/05/2024 1. Lack of interest/pleasure 0 - Not at all 0 - Not at all 2. Feeling down/depressed 0 - Not at all 0 - Not at all PHQ-2 TOTAL SCORE 0 0 3. Trouble sleeping 3 - Nearly every day 4. Decreased energy 3 - Nearly every day 5. Appetite change 1 - Several days 6. Feelings of failure 0 - Not at all 7. Trouble concentrating 3 - Nearly every day 8. Activity level 1 - Several days 9. Hurting yourself 0 - Not at all PHQ-9 TOTAL SCORE 11 PHQ-9 Severity Level moderate Functional Impairment somewhat difficult 08/05/2024 1:00 PM MINGO-7 ANXIETY SCREENING MINGO date (doc flow) 08/05/2024 Nervous, anxious 3 Cannot stop worrying 2 Worry about different things 3 Cannot relax 3 Feeling restless 2 Easily annoyed/irritated 3 Afraid of awful event 3 Score 19 Severity severe anxiety CURRENT MEDICATIONS: No current outpatient medications on file. No current facility-administered medications for this visit. Medications have been reviewed by me and are current to the best of my knowledge and ability. Currently taking two gummy vitamins and doxylamine 25 mg daily. ALLERGIES: Latex and Adhesive tape-silicones OBJECTIVE: LMP 06/22/2024 (Exact Date) ,URINE (no units) Date Value 07/29/2024 Positive (Positive) ASSESSMENT/PLAN: ICD-10-CM 1. Encounter for supervision of normal first in first trimester (HC) Z34.01 EDUCATION/PATIENT INSTRUCTIONS - Advised patient to continue vitamin. - Discussed risk of using alcohol, tobacco, other drugs in . - Discussed healthy lifestyle in . - Provided online resources such as [employer] [facility] and [employer]. Discussed [id number] medications, and follow up. - Encouraged patient to call clinic at [phone] with any vaginal bleeding, fluid leaking from vagina, severe abdominal pain, nausea with severe vomiting, fever higher than 100.4F, painful urination, headache not relieved by Tylenol, or other concerns - labs ordered - Patient informed to schedule 1st trimester dating ultrasound between 7-10 weeks. - Initial OB appointment with FP/OB scheduled. PHQ-9, and COVID-19 vaccine discussion to be completed at this visit. Future Appointments Date Time Provider Department Center 09/09/2024 4:00 PM Suznane Li MD [facility] Trisha Gibson RN .................... 08/05/2024 1:29 PM Last Filed Vital Signs Vital Sign Reading Time Taken Comments Blood Pressure 98/61 07/29/2024 10:20 AM CDT Pulse 74 07/29/2024 10:20 AM CDT Temperature - - Respiratory Rate 16 07/29/2024 10:20 AM CDT Oxygen Saturation - - Inhaled Oxygen Concentration - - Weight 60.4 kg (133 lb 3.2 oz) 07/29/2024 10:20 AM CDT Height 160 cm (5' 3) 07/29/2024 10:20 AM CDT Body Mass Index 23.6 07/29/2024 10:20 AM CDT Plan of Treatment Upcoming Encounters Date Type Department Care Team (Late st Contact Info) Description 09/09/2024 4:00 PM CDT OB Encounter [facility] [address] [place] [address] Suzanne Li MD [address] [place] [address] Health Maintenance Due Date Last Done Comments Tdap 2013 HPV series for age 9-26 (1 - 3-dose series) 2017 Hepatitis B series for 19+ ( 1 of 3 - 19+ 3-dose series) 2021 Tetanus booster 2022 COVID-19 vaccine series ( - season) 2023 Influenza Vaccine (Season Ended) 2024 RSV vaccine for adults or (1 - Risk 1-dose series) 02/01/2025 BMI (ht and wt on same day) for age 18+ 07/29/2025 07/29/2024 Depression screening for age 12+ 08/05/2025 08/06/19 Chlamydia for age 16-24 08/11/2025 08/11/2024 Pap test for age 21-65 06/24/2026 06/25/2023 HIV for age 15-65 Completed 08/11/2024 Hepatitis C screening for ag e 18-79 Completed 08/11/2024 Pneumococcal series for age 6-49 Aged Out No longer eligible based on patient's age to complete this topic Procedures Procedure Name Priority Date/Time Associated Diagnosis Comments GC CHLAMYDIA TRACH PROBE Routine 08/11/2024 3:33 PM CDT Encounter for supervision of normal first in first trimester (HC) URINE CULTURE Routine 08/11/2024 3:33 PM CDT Encounter for supervision of normal first in first trimester (HC) VARICELLA-ZOSTER V AB, IGG Routine 08/11/2024 3:28 PM CDT Encounter for supervision of normal first in first trimester (HC) ANTI HIV 1/2 Routine 08/11/2024 3:28 PM CDT Encounter for supervision of normal first in first trimester (HC) CBC W PLT NO DIFF Routine 08/11/2024 3:2 8 PM CDT Encounter for supervision of normal first in first trimester (HC) RUBELLA IMMUNE STATUS Routine 08/11/2024 3:28 PM CDT Encounter for supervision of normal first in first trimester (HC) HBSAG (HBS) Routine 08/11/2024 3:28 PM CDT Encounter for supervision of normal first in first trimester (HC) ANTI HCV Routine 08/11/2024 3:28 PM CDT Encounter for supervision of normal first in first trimester (HC) TYPE & SCREEN Routine 08/11/2024 3:27 PM CDT Encounter for supervision of normal first in first trimester (HC) TREPONEMA PALLIDUM Routine 08/11/2024 3: 27 PM CDT Encounter for supervision of normal first in first trimester (HC) URINE STAT 07/29/2024 11:00 AM CDT Unconfirmed COOLING ROOM ATTENDANT THIN PREP PAP SCREEN IMAGED Routine 06/25/2023 2:20 PM CDT from Last 3 Months or Most Recently Relevant to Health Maintenance Results * COOLING ROOM ATTENDANT PROBE - GC CHLAMYDIA DNA PCR [[id number]] (08/11/2024 3:33 PM CDT) CHLAMYDIA PROBE Negative 12:24 PM CDT [facility] N GONORRHOEAE PROBE Negative 08/12/2024 12:24 PM CDT [facility] Other URINE SPECIMEN / Unknown Non-Blood / Unknown 08/11/2024 3:33 PM CDT 08/11/2024 3:33 PM CDT us Suzanne Li MD MICROBIOLOGY Final Resul t Performing Organization Address [facility] Co de Phone Number [facility] [address] [place] [address], [place] * URINE CULTURE (08/11/2024 3:33 PM CDT) CULTURE <10,000 CFU/mL multiple organisms 08/13/2024 2:03 PM CDT [facility] Urine URINE SPECIMEN / Unknown Non-Blood / Unknown 08/11/2024 3:33 PM CDT 08/11/2024 3:33 PM CDT Suzanne Li MD MICROBIOLOGY Final Resul t Performing Organization Address City/[facility]/ZIP Co de Phone Number [facility] [address] [place] [address], [place] * (ABNORMAL) LC VARICELLA-ZOSTER V AB, IGG (08/11/2024 3:28 PM CDT) Pathologist [facility] VARICELLA ZOSTER VIRUS ANTIBODY (IGG) <1.00(L) S/CO [facility] Comment: Signal to Cut-off S/CO Interpretation --------- <1.00 Negative - Antibody not detected > or = 1.00 Positive - Antibody detected A positive result indicates that the patient has antibody to VZV but does not differentiate between an active or past infection. The clinical diagnosis must be interpreted in conjunction with the clinical signs and symptoms of the patient. This assay reliably measures immunity due to previous infection but may not be sensitive enough to detect antibodies induced by vaccination. Thus, a negative result in a vaccinated individual does not necessarily indicate susceptibility to VZV infection. A more sensitive test for vaccination-induced immunity is Varicella Zoster Virus Antibody Immunity Screen, ACIF. Blood BLOOD SPECIMEN / Unknown 08/11/2024 3:28 PM CDT 08/11/2024 3:28 PM CDT us Suzanne Li MD LABORATORY Final Resul t [facility] [address] [place] [address], [employer] [address] * RUBELLA IMMUNE STATUS (08/11/2024 3:28 PM CDT) [facility] RUBELLA AB (IGG), IMMUNE STATUS 2.49 Index [facility] Comment: Index Interpretation ----- <0.90 Not consistent with immunity 0.90-0.99 Equivocal > or = 1.00 Consistent with immunity The presence of rubella IgG antibody suggests immunization or past or current infection with rubella virus. Blood BLOOD SPECIMEN / Unknown 08/11/2024 3:28 PM CDT 08/11/2024 3:28 PM CDT Suzanne Li MD SEND OUTS Final Resul t Performing Organization Address [facility] de Phone Number [facility] [address] [place] [address], [facility] [address] [place] [address] * HBSAG (HBS) (08/11/2024 3:28 PM CDT) HEPATITIS B SURFACE ANTIGEN NON-REACTI VE NON-REACTI VE [facility] Comment: For additional information, please refer to http://PowerInbox.Mixify/faq/QOS525 (This link is being provided for informational/ educational purposes only.) Blood BLOOD SPECIMEN / Unknown 08/11/2024 3:28 PM CDT 08/11/2024 3:28 PM CDT Suzanne Li MD SEND OUTS Final Resul t Performing Organization Address [facility] de Phone Number [facility] [address] [place] [address], [place] [phone] [facility] [address] [place] [address] * ANTI HCV (08/11/2024 3:28 PM CDT) HEPATITIS C ANTIBODY NON-REACTI VE NON-REACT BURTON [facility] Comment: HCV antibody was non-reactive. There is no laboratory evidence of HCV infection. In most cases, no further action is required. However, if recent HCV exposure is suspected, a test for HCV RNA (test code 54938) is suggested. For additional information please refer to http://PowerInbox.Mixify/faq/XVR04w0 (This link is being provided for informational/ educational purposes only.) Blood BLOOD SPECIMEN / Unknown 08/11/2024 3:28 PM CDT 08/11/2024 3:28 PM CDT Suzanne Li MD SEND OUTS Final Resul t [facility] [address] [place] [address], [place] [phone] [facility] [address] [place] [address] * (ABNORMAL) CBC W PLT NO DIFF (08/11/2024 3:28 PM CDT) Pathologist [facility] WHITE BLOOD CELL COUNT 11.3(H) 3.8 - 10.8 Thousand/u L [facility] RED BLOOD CELL COUNT 4.07 3.80 - 5.10 Million/uL [facility] HEMOGLOBIN 12.6 11.7 - 15.5 g/dL [facility] HEMATOCRIT 37.5 35.0 - 45.0 % [facility] MCV 92.1 80.0 - 100.0 fL [facility] MCH 31.0 27.0 - 33.0 pg [facility] MCHC 33.6 32.0 - 36.0 g/dL [facility] Comment: For adults, a slight decrease in the calculated MCHC value (in the range of 30 to 32 g/dL) is most likely not clinically significant; however, it should be interpreted with caution in correlation with other red cell parameters and the patient's clinical condition. RDW 12.8 11.0 - 15.0 % [facility] PLATELET COUNT 327 140 - 400 Thousand/u L [facility] MPV 10.3 7.5 - 12.5 fL [facility] Blood BLOOD SPECIMEN / Unknown 08/11/2024 3:28 PM CDT 08/11/2024 3:28 PM CDT Suzanne Li MD HEMATOLOGY Final Resul t [facility] [employer] [facility] [address] [place] [address], [facility] [address] [place] [address] * ANTI HIV 1/2 (08/11/2024 3:28 PM CDT) HIV AG/AB, 4TH GEN NON-REACT BURTON NON-REACT BURTON [facility] Comment: HIV-1 antigen and HIV-1/HIV-2 antibodies were not detected. There is no laboratory evidence of HIV infection. PLEASE NOTE: This information has been disclosed to you from records whose confidentiality may be protected by state law. If your state requires such protection, then the state law prohibits you from making any further disclosure of the information without the specific written consent of the person to whom it pertains, or as otherwise permitted by law. A general authorization for the release of medical or other information is NOT sufficient for this purpose. For additional information please refer to http://education.Mixify/faq/RUR934 (This link is being provided for informational/ educational purposes only.) The performance of this assay has not been clinically validated in patients less than 2 years old. Blood BLOOD SPECIMEN / Unknown 08/11/2024 3:28 PM CDT 08/11/2024 3:28 PM CDT Suzanne Li MD SEND OUTS Final Resul t [facility] [address] [place] [address], [facility] [address] [place] [address] * TREPONEMA PALLIDUM (08/11/2024 3:27 PM CDT) TREPONEMA PALLIDUM Non-Reacti ve Non-Reacti ve 08/11/2024 11:18 PM CDT [facility] Blood BLOOD SPECIMEN / Unknown [facility] / Unknown 08/11/2024 3:27 PM CDT 08/11/2024 3:27 PM CDT Suzanne Li MD SEND OUTS Final Resul t [facility] [address] [place] [address], [place] * TYPE AND SCREEN (08/11/2024 3:27 PM CDT) ABORH A Rh Positive 08/12/2024 12:56 AM CDT [facility] BLOOD BANK ANTIBODY SCREEN Negative Negative 08/12/2024 12:56 AM CDT [facility] SPECIMEN EXPIRATION DATE/TIME 08/14/24 23:59 08/12/2024 12:56 AM CDT [facility] Blood BLOOD SPECIMEN / Unknown [facility] / Unknown 08/11/2024 3:27 PM CDT 08/11/2024 3:27 PM CDT Suzanne Li MD BLOOD BANK Final Resul t Performing Organization Address [facility]/ZIP Co de Phone Number [facility] [address] [place] [address], [place] [phone] * (ABNORMAL) URINE (07/29/2024 11:00 AM CDT) ,URIN E Positive(P ositive) Negative 07/29/2024 11:08 AM CDT [facility] Comment:Is Rh typing necessa ry? Urine URINE SPECIMEN / Unknown Non-Blood / Unknown 07/29/2024 11:00 AM CDT 07/29/2024 11:00 AM CDT Matilda Gibbs DO URINE Final Result [facility] [address] [place] [address] * COOLING ROOM ATTENDANT THIN PREP PAP SCREEN IMAGED (06/25/2023 2:20 PM CDT) Case Report Gynecologic Cytology Report Case: [id number] Authorizing Provider: Shaista Donato NP Collected: 06/25/2023 1420 Ordering Location: [facility] Received: 06/27/2023 0947 First Screen: Fernanda Dickens Specimen: COOLING ROOM ATTENDANT ThinPrep Vial Screening, Cervical 07/03/2023 11:28 AM CDT [facility] INTERPRETATION/ RESULT NEGATIVE FOR INTRAEPITHELIAL LESION OR MALIGNANCY (NIL) (none) 07/03/2023 11:28 AM CDT [facility] [employer] ENTRAL LABORATORY at 1128 CDT ORGANISM(S) 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 07/03/2023 11:28 AM CDT [facility] SPECIMEN ADEQUACY Satisfactory for evaluation Endocervical component present 07/03/2023 11:28 AM CDT [facility]TR[facility] HPV REQUEST HPV not requested 2023 11:28 AM CDT [facility] Date of LMP 06/09/2023 07/03/2023 11:28 AM CDT [facility] ENTRAL LABORATORY Last Pap Result First Pap/Unknown 11:28 AM CDT [facility] ENTRAL LAB[facility]ORY Abnormal Pap or [place] Bx in last 5 years No 07/03/2023 11:28 AM CDT [facility] [place] ENTRAL LABORATORY Menstrual Status Regular Periods 07/03/2023 11:28 AM CDT [facility] [place] ENTRAL LABORATORY [place] Bx Done Today No 07/03/2023 11:28 AM CDT [facility] [place] ENTRAL LABORATORY Additional Information 07/03/2023 11:28 AM CDT [facility] [place] ENTRAL LABORATORY Comment: [facility] at [facility] Central Laboratory - [address], [place] [address] Automated Review Successful 07/03/2023 11:28 AM CDT [facility] [place] ENTRAL LABORATORY Comment:Specimen processed s uccessfully by automated serger device, ThinPrep Imaging System, [employer] Note The pap test is a screening technique, not a diagnostic procedure. It is used primarily to screen for squamous cancers and precursor lesions. Published studies have shown that it is subject to both false negative and false positive results. The pap test should not be used as the sole means to diagnose or exclude pre-malignant and malignant lesions. 07/03/2023 11:28 AM CDT [facility] ENTRAL LABORATORY Other (Cervical) 06/25/2023 2:20 PM CDT 06/27/2023 9:47 AM CDT us Shaista Donato NP PATHOLOGY/CYTOLOGY Final Result [facility]AL LAB[facility]ATORY [address] [place] [address], from Last 3 Months or Most Recently Relevant to Health Maintenance Insurance [facility] NON-IA-ITS Care Teams Fourth Grade Teacher Relationship Specialty Start Date End Date Pcp, No . PCP - General 07/29/24
--- OUTSIDE RECORDS SUMMARY | 2024-08-27 09:05 | XMS_ITS | Data Portability ---
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 Active 2024 Dereje Schwarz DC [address], [place], [address], [facility] 17:11:08 Lumbar segmental dysfunction 146386363 Active 2024 Dereje Schwarz DC [address], [place], [address], [facility] 17:11:08 Somatic dysfunction of sacral spine 616460052 Active 2024 Dereje Schwarz DC [address], [place], [address], [facility] 17:11:08 Low back pain 140801105 Active 2024 Dereje Schwarz DC [address], [place], [address], [facility] 17:11:08 Problem Notes None recorded. Procedures Surgical History Date Name Laterality Status Provider Name and Address Organization Details Recorded Time 37073: Spinal manipulation , 3 to 4 regions completed Dereje Schwarz DC [address], [place], [address], [facility] 08/24/2024 17:11:57 Imaging Results None recorded. Procedure Notes None recorded. Medical Equipment None Reported. Vitals None Recorded Social History None recorded. 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 Family History Nothing Reported. Medical History No medical history recorded. Gynecological HistoryNo gynecological history recorded. Obstetrics History GPAL:G 0 P 0 0 0 0 Past Encounters Encounter ID Performer Location Encounter Start Date Encounter Closed Date Diagnosis/Indication Diagnosis SNOMED-CT Code Diagnosis ICD10 Code Diagnosis Note [id number] Dereje Schwarz DC [facility] [address] [place] [phone] 08/24/2024 16:14:40 08/24/2024 18:43:17 Lumbar segmental dysfunction 466874055 M99.03 Low back pain 307500867 M54.50 Somatic dy sfunction of sacral spine 576639972 M99.04 Thoracic s egmental dysfunction 519715686 M99.02 Health Concerns Section Related Observation LastModified by Organization Detai ls LastModified Time None Recorded Concern Status LastModified by Organization Details LastModified Time None Recorded Advance Directives Directive None Recorded Payers Encounter Date Sequence Insurance Name Policy Number Policy Garcia Covered Member ID Garcia Member ID Guarantor Name 08/24/2024 1 [place] [id number] Shanta Beauchamp [id number] Shanta Beauchamp Notes Date Note Type Note Provider Name and Address Organization Details Recorded Time 08/24/2024 text/html HPI - Lumbar SpineReported bypatient.Location: left Quality:aching Severity:moderate Timing:morning Aggravating Factors:walking; lifting; carrying; twisting Alleviating Factors:rest Dereje Schwarz DC [address], [place], [address], [facility] - [facility] 08/24/2024 17:12:09 OBGyn Episode No OBEpisode recorded.
[2024-08-27 09:13] VITALS: BP 120/79; PULSE 88; RESP 16; TEMP 37.2; O2SAT 98
--- NOTE | 2024-08-27 09:30 | CRLHL7_ITS ---
For Patients: As a result of the Century Cures Act, medical imaging exams and procedure reports are released immediately into your electronic medical record. You may view this report before your referring provider. If you have questions, please contact your health care provider. INDICATION: Bleeding and cramping in the 1st trimester that has been going on for the last 1 week COMPARISON: None. No beta HCG value available. TECHNIQUE: Grayscale and color Doppler ultrasound of the uterus and both ovaries from a transvaginal approach. Transvaginal imaging was necessary for better visualization of the endometrial contents. FINDINGS: Last menstrual period: 06/22/2024 Estimated gestational age: 9 weeks 3 days Normal uterine size and position. No myometrial mass. The endometrium measures 4 millimeters in double thickness. There is an eccentric hypodense cystic area that measures 0.4 x 0.3 x 0.3 cm posterior to the endometrial margin at the uterine fundus. There is adjacent hypervascularity. The left ovary measures 3.6 x 2.4 x 2.2 cm. Several follicles including a dominant follicle or paraovarian cyst that measures 1.2 cm. The right ovary measures 1.8 x 3.5 x 2.3 centimeters. Several follicles. No solid mass. No pelvic free fluid. IMPRESSION: 1. There is a 4 millimeter cystic area in the posterior endometrium. Not definitely a gestational sac. No embryo identified. Given the time since her last menstrual period and one-week of bleeding, first-trimester loss is suspected. 2. No findings of an ectopic pelvic . Dictated by Matilda Houser MD @ 08/27/2024 11:04:58 AM (Electronically Signed)
--- NOTE | 2024-08-27 10:26 | ED_ITS ---
HPI - General Adult General Chief complaint: Vaginal Bleeding Stated complaint: possible miscarriage not sure Time Seen by Provider: 08/27/24 10:26 History of Present Illness HPI narrative: Patient is a 24-year-old 1 para 0 woman who presents at 7 weeks with vaginal bleeding. She has started having bleeding approximately 5 days ago and has been passing heavy clots for several days as well as having low-grade fever 100.4. Patient had improvement of the clotting but still is having bleeding per vagina. She is also having cramping of her lower abdomen bilaterally. She has no current fever and has been eating and drinking normally. She takes antiplatelets or anticoagulant medications and is otherwise in good health. No other major complaints. Related Data Allergies Allergy/AdvReac Type Severity Reaction Status Date / Time adhesive Allergy Unknown Rash Verified 08/27/24 09:16 latex Allergy Unknown Rash Verified 08/27/24 09:16 Review of Systems Status of ROS: Reports: 10 or more systems reviewed and unremarkable except as noted in History and below [facility] Medical History History of sexually transmitted disease (11/24/20) ?Z86.19 - Personal history of other infectious and parasitic diseases (ICD- 10) Purposeful non-suicidal drug ingestion (2019) ?T50.902A - Poisoning by unspecified drugs, medicaments and biological substances, intentional self-harm, initial encounter (ICD-10) Depression ?F32.A - Depression, unspecified (ICD-10) Asthma ?J45.909 - Unspecified asthma, uncomplicated (ICD-10) Anxiety ?F41.9 - Anxiety disorder, unspecified (ICD-10) Surgical History History of nasal septoplasty (03/28/17) ?Z98.890 - Other specified postprocedural states (ICD-10) History of tonsillectomy and adenoidectomy (03/28/17) ?Z90.89 - Acquired absence of other organs (ICD-10) Social History Smoking Status: Current every day smoker Do you use any of these nicotine containing products: E-Cigarettes Second hand tobacco smoke exposure: No How often do you have a drink containing alcohol: monthly or less How many standard drinks containing alcohol do you have on a typical day: 3 or 4 How often do you have six or more drinks on one occasion: Less than monthly AUDIT-C Alcohol total score: 3 Non-prescribed substance use: denies use service: No Exam Narrative: Exam Narrative: EXAM GENERAL: Patient appears comfortable and well. EYES: No scleral icterus. LYMPH: No supraclavicular or cervical lymphadenopathy. SKIN: Visible skin seen during exam normal or with benign process only. EXT: No dependent lower extremity pedal edema. HEART: Regular rate and rhythm with no murmurs, rubs, or gallops. LUNGS: Clear to auscultation bilaterally with no crackles or wheezes. ABD: Soft, non tender, non distended. PSYCH: Good eye contact, speech is not pressured. Const: Vital Signs, click to edit/add: Vital Signs - 24 hr 08/27/24 09:13 08/27/24 11:30 Temperature 99 F Pulse Rate [Pulse Oximeter] 88 77 Respiratory Rate 16 16 Blood Pressure [[facility]] 120/79 104/68 Pulse Oximetry 98 99 Oxygen Delivery Me thod Room Air Room Air Course Course ED Course: Patient seen and examined. Ultrasound shows retained products of conception. CBC quantitative hCG pending. Storage Manager coming to see the patient. Vital Signs Vital signs: Initial Vital Signs Temperature 99 F 08/27/24 09:13 Temperature Source Temporal Artery Scan 08/27/24 09:13 Pulse Rate 88 08/27/24 09:13 Respiratory Rate 16 08/27/24 09:13 Blood Pressure 120/79 08/27/24 09:13 Blood Pressure Mean 92 08/27/24 09:13 Blood Pressure Position Sitting 08/27/24 09:13 Pulse Oximetry 98 08/27/24 09:13 Oxygen Delivery Method Room Air 08/27/24 09:13 Vital Signs Temperature 99 F 08/27/24 09:13 Pulse Rate 88 08/27/24 09:13 Respiratory Rate 16 08/27/24 09:13 Blood Pressure 120/79 08/27/24 09:13 Pulse Oximetry 98 08/27/24 09:13 Oxygen Delivery Method Room Air 08/27/24 09:13 Temperature 99 F 08/27/24 09:13 Pulse Rate 77 08/27/24 11:30 Respiratory Rate 16 08/27/24 11:30 Blood Pressure 104/68 08/27/24 11:30 Pulse Oximetry 99 08/27/24 11:30 Oxygen Delivery Method Room Air 08/27/24 11:30 Medical Decision Making MDM Narrative Medical decision making narrative: Patient presents with vaginal bleeding after 7 weeks of . She is passing clots and low-grade fever previously. She sent in today were ultrasound shows retained products of conception. OBGYN consulted and will be taking the patient for D& C. Labs are currently pending but will be reviewed. Patient will be proceeding to the operating room. Lab Data Labs: Lab Results 08/27/24 Range/Units 10:50 HCG, Quant 1078.80 mIU/mL Discharge Plan Discharge Clinical Impression: Incomplete miscarriage Patient Disposition: XFER to OR Condition: Stable Follow Up/Referrals: Miguel Angel Noriega MD [Primary Care Provider, Family Practice]
[2024-08-27 11:30] VITALS: BP 104/68; PULSE 77; RESP 16; O2SAT 99
[2024-08-27 12:38] LABS: Basophils Absolute Auto 0.05 K/uL (0.00-0.30); Basophils Percent Auto 0.6 % (0.0-3.0); Eosinophils Absolute Auto 0.16 K/uL (0.00-0.50); Eosinophils Percent Auto 1.9 % (0.0-7.0); Hematocrit 36.9 % (33.0-51.0); Hemoglobin* 12.3 gm/dL (12.0-16.0); Immature Granulocytes Abs Auto 0.03 K/uL (0.00-0.30); Immature Granulocytes Pct Auto 0.4 %; Lymphocytes Absolute Auto 2.48 K/uL (0.90-2.90); Lymphocytes Percent Auto 29.2 % (20-44); Mean Corpuscular HGB Conc 33 gm/dL (32-36); Mean Corpuscular Hemoglobin 30 pg (26-34); Mean Corpuscular Volume 91 fL (80-100); Monocytes Percent Auto 6.7 % (0.0-11.0); Neutrophils Absolute Auto 5.19 K/uL (1.7-7.0); Neutrophils Percent Auto 61.2 % (42.0-72.0); Platelet Count* 348 K/uL (140-440); RDW Coefficient of Variation % 12.7 % (11.5-15.5); Red Blood Count 4.07 m/uL (4.00-5.20); White Blood Count* 8.48 K/uL (4.50-11.00)
[2024-08-27 12:39] LABS: Slide Review Reflex No
[2024-08-27 13:03] VITALS: BMI 23.4
[2024-08-27 13:08] VITALS: BP 115/82; PULSE 88; RESP 20; TEMP 36.8; O2SAT 100
[2024-08-27] MEDS: LACTATED RINGERS 1000 ML 1,000 ML 100 ML IV (13:12)
--- NOTE | 2024-08-27 13:49 | PM.GYNCN1 ---
AREA ATTENDANT - CN: HPI Data of Consult Date Seen: 08/27/24 Patient: Other Consult date: 08/27/24 Requesting Physician: Deana Renteria MD Primary Care Provider: Emmett Ruiz MD Consult Narrative Narrative: Shanta Beauchamp is a 24 year old female seen by request of Emmett Ruiz MD for evaluation of bleeding in early . She is a woman who is 9 weeks, 3 days gestation by LMP. She had her first positive urine test on 07/25. She had her initial care at [facility], and had labs and hormone testing there. She had not had an ultrasound there yet. She started spotting one week ago. Last Friday, she developed heavy bleeding with passage of blood clots throughout the night. She also reports severe cramping and a temperature of 100.4? for 2 hours that night. Both cramping and temperature subsequently resolved. Bleeding tapered off by Friday. At this point, she has had bleeding off and on and the color is brown. Obstetric and gynecologic history: . This occurred while taking Micronor for contraception. She has a history of chlamydia 3 years ago, treated with antibiotics. She was also treated for syphilis exposure in high school but was ultimately not diagnosed with this infection. She has no history of abnormal Pap. Social history: She is from [place]. She went to high school for 1 year in [place]. She currently lives in [place] next door to her sisters, who plan to come to take care of her after surgery. 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 She is no longer involved with the partner that she conceived with. cc:: CC: Deana Renteria MD [facility] Medical History History of sexually transmitted disease (11/24/20) ?Z86.19 - Personal history of other infectious and parasitic diseases (ICD-10) Purposeful non-suicidal drug ingestion (2019) ?T50.902A - Poisoning by unspecified drugs, medicaments and biological substances, intentional self-harm, initial encounter (ICD-10) Depression ?F32.A - Depression, unspecified (ICD-10) Asthma ?J45.909 - Unspecified asthma, uncomplicated (ICD-10) Anxiety ?F41.9 - Anxiety disorder, unspecified (ICD-10) Surgical History History of nasal septoplasty (03/28/17) ?Z98.890 - Other specified postprocedural states (ICD-10) History of tonsillectomy and adenoidectomy (03/28/17) ?Z90.89 - Acquired absence of other organs (ICD-10) Social History Smoking Status: Current every day smoker Do you use any of these nicotine containing products: E-Cigarettes and Vaping Products Second hand tobacco smoke exposure: No How often do you have a drink containing alcohol: monthly or less How many standard drinks containing alcohol do you have on a typical day: 3 or 4 How often do you have six or more drinks on one occasion: Less than monthly AUDIT-C Alcohol total score: 3 Non-prescribed substance use: denies use service: No Meds Home Medications and Allergies Allergies Allergy/AdvReac Type Severity Reaction Status Date / Time adhesive Allergy Unknown Rash Verified 08/27/24 09:16 latex Allergy Unknown Rash Verified 08/27/24 09:16 AREA ATTENDANT - Exam Physical Exam: Vital signs: Temp Pulse Resp BP Pulse Ox O2 Del Method 98.2 F 88 20 115/82 100 Room Air 08/27/24 13:08 08/27/24 13:08 08/27/24 13:08 08/27/24 13:08 08/27/24 13:08 08/27/24 13:08 Narrative: Physical exam: General: No acute distress Psych: Alert and oriented x3, full affect, intermittently tearful HEENT: Normocephalic, atraumatic Neck: No cervical adenopathy, no thyromegaly Heart: Regular rate and rhythm, no murmur rub or gallop Lungs: Clear to auscultation bilaterally Abdomen: soft, no tenderness, rebound, or guarding, no masses, no hepatosplenomegaly, no hernias Lower extremities: No edema or erythema Pelvic exam Deferred to OR AREA ATTENDANT - Results Labs Labs: Short CBC 08/27/24 Range/Units 10:50 WBC 8.48 (4.50-11.00) K/uL Hgb 12.3 (12.0-16.0) gm/dL Hct 36.9 (33.0-51.0) % Plt Count 348 (140-440) K/uL Blood type A positive Imaging US - abdomen: Attestation: I have reviewed the pertinent imaging results. My impression: Heterogeneous endometrium with 0.4 cm cyst posteriorly Radiologist's impression: Endometrium 4 mm, eccentric hypodense cytic area that measures 0.4X 0.3X 0.3 cm posterior to the endometrial margin at the uterine fundus. There is adjacent hypervascularity. Assessment and Plan Assessment and plan (1) Incomplete miscarriage: Status: Acute Assessment and Plan: Finding suspicious for incomplete on ultrasound. I do not think she has a large amount of retained products. The cystic area with adjacent hypervascularity is what leads me to favor this diagnosis. She is not anemic and does not have an elevated white count. Her report of an elevated temperature at home is concerning, but this resolved 6 days ago, making infection very unlikely. We discussed options for management, including observation, medication management, and dilation and curettage. She prefers the latter. We discussed the risks of suction uterine curettage, including bleeding, infection, uterine perforation, retained placenta, and the risk of intrauterine scarring. Consent form reviewed with and signed by patient. Upon further review, I favor hysteroscopy as an approach if visualization is possible. We also discussed follow-up in clinic in 2 weeks. We discussed contraceptive options for her. She prefers to have regular menses, and had contraceptive failure with Micronor. Copper IUD may be acceptable approach for her.
[2024-08-27] MEDS: DOXYCYCLINE HYCLATE 100 MG 200 MG PO (14:10)
[2024-08-27] MEDS: LIDOCAINE 1% MDV 10 ML INJECTION (15:47)
--- NOTE | 2024-08-27 15:47 | SUR.OPER ---
Patient positioned supine on OR #4 bed for the induction. Pt. legs then moved into the lithotomy position for the procedure. Perioperative team supported arms bilaterally on arm boards. ? Final approval of positioning by surgeon. Continuous irrigation of the uterus with saline during the procedure.
--- NOTE | 2024-08-27 15:48 | P.ANES_ITS ---
Anesthesia Charges Start Date/Time Anesthesia Start Date: 08/27/24 Anesthesia Start Time: 15:19 Stop Date/Time Anesthesia Stop Date: 08/27/24 Anesthesia Stop Time: 16:11 Coding CPT Codes CPT Codes: ANESTH HYSTEROSCOPE/GRAPH - 36963 ([id number]) P1 - NORMAL HEALTHY PATIENT, QK - PULLING UNIT FLOORHAND 2-4 CNCRNT ANES PROC, QX - SALES ENGAGEMENT EXECUTIVE SVC W/ MED DIRECTION
--- NOTE | 2024-08-27 15:48 | W.ANESCHARGE ---
Anesthesia Charges Start Date/Time Anesthesia Start Date: 08/27/24 Anesthesia Start Time: 15:19 Stop Date/Time Anesthesia Stop Date: 08/27/24 Anesthesia Stop Time: 16:11 Coding CPT Codes CPT Codes: ANESTH HYSTEROSCOPE/GRAPH - 06353 ([id number]) P1 - NORMAL HEALTHY PATIENT, QK - BIOLOGIST 2-4 CNCRNT ANES PROC, QX - PUBLIC ADDRESS TECHNICIAN SVC W/ MED DIRECTION
[2024-08-27 16:08] VITALS: BP 97/52; PULSE 58; RESP 16; TEMP 36.9; O2SAT 100
--- NOTE | 2024-08-27 16:10 | P.ANES_ITS ---
Anesthesia Charges Start Date/Time Anesthesia Start Date: 08/27/24 Anesthesia Start Time: 15:19 Stop Date/Time Anesthesia Stop Date: 08/27/24 Anesthesia Stop Time: 16:11 Coding CPT Codes CPT Codes: ANESTH VAGINAL PROCEDURES - 26877 ([id number]) P1 - NORMAL HEALTHY PATIENT, QK - RURAL CARRIER 2-4 CNCRNT ANES PROC, QX - FAIRGROUND OPERATOR SVC W/ MED DIRECTION
--- NOTE | 2024-08-27 16:10 | W.ANESCHARGE ---
Anesthesia Charges Start Date/Time Anesthesia Start Date: 08/27/24 Anesthesia Start Time: 15:19 Stop Date/Time Anesthesia Stop Date: 08/27/24 Anesthesia Stop Time: 16:11 Coding CPT Codes CPT Codes: ANESTH VAGINAL PROCEDURES - 34271 ([id number]) P1 - NORMAL HEALTHY PATIENT, QK - ELECTRIC GOLF CART REPAIRER 2-4 CNCRNT ANES PROC, QX - FIXTURE RELAMPER SVC W/ MED DIRECTION
--- NOTE | 2024-08-27 16:24 | W.PM.GYNPROC ---
Procedure Note Date of procedure: 08/27/24 Will [facility] bill your pro fee for this procedure?: Yes Pre-op diagnosis: Incomplete Post-op diagnosis: Same Procedure: Hysteroscopy, visual dilation and curettage Anesthesia: MAC and local Complications: None Surgeon: Deana Renteria MD Estimated blood loss (mL): 15 IV fluids (mL): 600 Urine Output (mL): 105 Pathology: specimen obtained, sent to pathology (products of conception) Condition: stable Disposition: same day Findings: 1. On exam under anesthesia, vulva was normal. Vagina and cervix are normal in appearance. Uterus was mobile, soft, anteverted, of normal size and texture. There were no palpable adnexal masses. 2. Upon hysteroscopy, survey of the endocervix was normal. Survey of the endometrial cavity revealed a small amount of deep red tissue consistent with retained placental fragment in the posterior fundus. This tissue was completely removed. Cavity shape was normal. Saline deficit: 665 mL Procedure Description: Procedure in detail: Patient was taken to the operating room with IV running. She was positioned in dorsal lithotomy position with her legs fully supported in Yellofin stirrups. She was given 200 mg of oral doxycycline in preoperative prophylaxis. Monitored anesthesia care was administered. She was prepped and draped in the usual sterile fashion. Exam under anesthesia was performed for the above-noted findings. Speculum was inserted. Cervix visualized and grasped along the anterior lip with a single-tooth tenaculum. Paracervical block was performed for total of 9 mL of 1% lidocaine. Cervix was serially dilated to accommodate the TRUCLEAR hysteroscope. This was assembled with saline inflow and outflow in place. The line was flushed of bubbles. The hysteroscope was advanced through the cervix into the endometrial cavity for the above noted findings. The tissue morcellator was then inserted through the operating channel. Window lock was performed. Under direct visualization, the endometrial cavity was circumferentially curetted with the tissue morcellator. The hysteroscope and morcellator were then removed from the uterus. Tenaculum was removed from the anterior lip of cervix. Hemostasis was noted. Patient tolerated procedure well. She was taken to recovery area in stable condition.
[2024-08-27 16:30] VITALS: BP 93/54; PULSE 54; RESP 16; O2SAT 100
[2024-08-27 16:45] VITALS: BP 93/53; PULSE 54; RESP 16; O2SAT 100
== END 2024-08-27 16:58 | disposition home or self-care (01) ==
LOC: ED 13:06 → SS 13:10
PROVIDERS: Emergency Provider Internal Medicine; PCP Family Medicine; Visit Provider Obstetrics & Gynecology
PROC: 0UDB8ZZ Extraction of Endometrium, Via Natural or Artificial Opening Endoscopic (ICD-10-PCS; CPT 58558; 2024-08-27 15:00)
DX: O03.4 Incomplete spontaneous abortion without complication (principal); F17.290 Nicotine dependence, other tobacco product, uncomplicated
CPT/HCPCS: 59812; 00940; 00952; 01965; 36415; 76817; 84702; 85025; 86850; 86900; 86901; 88305; 99283; 99285; J2003; A9270; C1782; J1100; J2250; J2371; J2405; J2704; J3010; J7120

== ENCOUNTER 2024-12-12 12:29 | Emergency (ER) | payer BC, SELFPAY ==
--- OUTSIDE RECORDS SUMMARY | 2023-07-03 04:04 | XMS_ITS | Continuity of Care Document ---
Author Organization [facility] Address [address] [address] [place] [address] Phone Care Team Providers Care Risk Professional Name Role Phone Anshul Riley MD Unavailable Unavailabl e Allergies, Adverse Reactions, Alerts Substance Reaction Status Criticality adhesive tape Rash Active No Information latex ItchingItching Active No Informatio n Medications Medication Instructions Dosage Effective Dates (start - stop) Status Comments Multivitamin unknown Oral Take 1 tablet by oral every day - Active Control Pill ORAL TABLET Take one tablet by mouth daily - Active LEXAPRO (unknown strength) take 1 tablet by oral route every day (15mg total) Not Available - Active HYDROXYZINE HCL (unknown strength) Take 2 tablets by oral as needed Not Available - Active dicyclomine 20 mg tablet take 1 tablet by oral route 4 times every day as needed 20 MG - Active Procedures Procedure Date Offic/outpt E&m New Mod-ar Routine Serum Collection Advance Directives Directive Yes / No Effective Date File Name No Information Encounters Encounter Description Practice Location Reason(s) For Visit Diagnoses Date Provider Providers Copied on Encounter [facility], [address] [address], [place], [id number], [place] tel:[phone] [facility] No Information 4 Jason Landers. [address] [facility], [address], [place], [place], [id number] , [place]. tel:[phone] Offic/outpt E&m [facility], [address] [address], [place], [id number], [place] tel:[phone] [facility] GI Symptoms or Concerns (chief complaint) Irregular bowel habitsGeneralized abdominal painRectal bleeding 4 Julius Sanders. [address] [facility], [address], [place], [id number] , [place]. [phone] Gage Noriega MD. tel:[phone] erring Provider: Referral Self, USE FOR SELF REFERRALS. [facility], [address] [address], [place], [id number], [place] tel:[phone] [facility] No Information 3 Jason Landers. [address] [facility], [address] [place], [id number] , [place]. [phone] Family History Family Member Type Diagnosis Age At Onset Father Problem (finding) Crohn's disease Immunizations Vaccine Date Status Comments SARS-COV-2 (COVID-19) vaccin e, mRNA, spike protein, LNP, preservative free, 30 mcg/0.3mL dose administered Note: [facility] bi-direct ional interface ; Source: Other Registry SARS-COV-2 (COVID-19) vaccin e, mRNA, spike protein, LNP, preservative free, 30 mcg/0.3mL dose administered Note: [facility] bi-direct ional interface ; Source: Other Registry Afluria Qd administered Note: [facility] bi-directional interface ; Source: Other Registry Human Papillomavirus 9-sabiha t vaccine administered Note: [facility] bi-direct ional interface ; Source: Other Registry Afluria Qd administered Note: [facility] bi-directional interface ; Source: Other Registry Havrix pediatric administered Note: [facility] bi-directional interface ; Source: Other Registry Human Papillomavirus 9-sabiha t vaccine administered Note: [facility] bi-direct ional interface ; Source: Other Registry meningococcal oligosaccharid e (groups A, C, Y and W-135) diphtheria toxoid conjugate vaccine (MCV4O) administered Note: [facility] bi-direct ional interface ; Source: Other Registry tetanus toxoid, reduced diphtheria toxoid, and acellular pertussis vaccine, adsorbed administered Note: [facility] b i-directional interface ; Source: Other Registry influenza, live, intranasal, quadrivalent administered Note: [facility] bi-direct ional interface ; Source: Other Registry Havrix pediatric administered Note: [facility] bi-directional interface ; Source: Other Registry Influenza, seasonal, injecta ble, preservative free administered Note: [facility] bi-direct ional interface ; Source: Other Registry influenza virus vaccine, harris e, attenuated, for intranasal use administered Note: [facility] C bi- directional interface ; Source: Other Registry Afluria Qd 3829-4034 administered Note: [facility] bi-directional interface ; Source: Other Registry Novel [id number], all formulations administered Note: [facility] bi-direct ional interface ; Source: Other Registry Novel [id number], all formulations administered Note: [facility] bi-direct ional interface ; Source: Other Registry influenza virus vaccine, harris e, attenuated, for intranasal use administered Note: [facility] C bi- directional interface ; Source: Other Registry measles, mumps and rubella v irus vaccine administered Note: [facility] bi-direct ional interface ; Source: Other Registry varicella virus vaccine administered Note : [facility] bi-directional interface ; Source: Other Registry poliovirus vaccine, inactivated administe red Note: [facility] bi- directional interface ; Source: Other Registry diphtheria, tetanus toxoids and acellular pertussis vaccine administered Note: [facility] b i-directional interface ; Source: Other Registry Influenza, seasonal, injectable administe red Note: [facility] bi- directional interface ; Source: Other Registry Pneumovax administered Note: [facility] bi-d irectional interface ; Source: Other Registry Haemophilus influenzae type b vaccine, PRP-T conjugate administered Note: [facility] bi-d irectional interface ; Source: Other Registry Pneumovax administered Note: [facility] bi-d irectional interface ; Source: Other Registry measles, mumps and rubella v irus vaccine administered Note: [facility] bi-direct ional interface ; Source: Other Registry diphtheria, tetanus toxoids and acellular pertussis vaccine administered Note: [facility] b i-directional interface ; Source: Other Registry Haemophilus influenzae type b vaccine, HbOC conjugate administered Note: [facility] bi-di rectional interface ; Source: Other Registry varicella virus vaccine administered Note : [facility] bi-directional interface ; Source: Other Registry Haemophilus influenzae type b conjugate and Hepatitis B vaccine administered Note: [facility] bi- directional interface ; Source: Other Registry poliovirus vaccine, inactivated administe red Note: [facility] bi- directional interface ; Source: Other Registry Pneumovax administered Note: [facility] bi-d irectional interface ; Source: Other Registry DTaP-Haemophilus influenzae type b conjugate vaccine administered Note: [facility] bi-direct ional interface ; Source: Other Registry poliovirus vaccine, inactivated administe red Note: [facility] bi- directional interface ; Source: Other Registry Pneumovax administered Note: [facility] bi-d irectional interface ; Source: Other Registry Energix Pediatric administered Note: [facility] bi-directional interface ; Source: Other Registry DTaP-Haemophilus influenzae type b conjugate vaccine administered Note: [facility] bi-direct ional interface ; Source: Other Registry poliovirus vaccine, inactivated administe red Note: [facility] bi- directional interface ; Source: Other Registry Pneumovax administered Note: [facility] bi-d irectional interface ; Source: Other Registry Haemophilus influenzae type b conjugate and Hepatitis B vaccine administered Note: [facility] bi- directional interface ; Source: Other Registry diphtheria, tetanus toxoids and acellular pertussis vaccine administered Note: [facility] b i-directional interface ; Source: Other Registry Payers Payer name Insurance type Covered green party ID Authoriza tion(s) Blue Plus [facility]23 [id number] Social History Type Description Quantity Date Captured Comments Sex Female Smoking Status No Information Chief Complaint And Reason For Visit No Information Reason For Referral Reason For Referral No Information Plan Of Treatment Date Type Action Status Referral Ordered: Colonoscopy Appointment date/timeframe: 07/16/2023 ordered History Of Present Illness Encounter Date Complaint History Of Prese nt Illness GI Symptoms or Concerns Shanta is a pleasant 22-year-old female who presents for evaluation of irregular bowel habits, abdominal pain, and rectal bleeding. There were no records to review for this visit. Patient reports a history of stomach problems since she was 16 years old. She notes multiple ER visits for abdominal pain. She last presented to the ER a couple of months ago with sharp left-sided abdominal pain. She had an ultrasound which revealed ovarian cysts. Workup was otherwise unremarkable. She was told that her anxiety may be contributing to her irregular bowel habits and that she may have IBS.She reports fluctuating from constipation to diarrhea. She has a lot of mucus with her bowel movements. She does also occasionally notice blood in her stool, every few months. Her left-sided pain is sharp and is worse when she is constipated. She endorses chills, night sweats, hematochezia, nausea. Family history is significant for dad with Crohn's disease. Patient is unsure if he also Functional Status Date Functional Assessmen t No Information Instructions Date Instruction Additional Infor mation No Information Assessments Type Assessment Date No Information Patient Care Teams Name Effective Dates (start - stop) Status Members No Information
--- OUTSIDE RECORDS SUMMARY | 2023-07-03 04:04 | XMS_ITS | Continuity of Care Document ---
Author Organization [facility] Address [address] [address] [place] [address] Phone Care Team Providers Care Bioinformatics Engineer Name Role Phone Anshul Riley MD Unavailable [...] Active Procedures Procedure Date Offic/outpt E&m New Mod-ma Routine Serum Collection Advance Directives Directive Yes / No Effective Date File Name No Information Encounters Encounter Description Practice Location Reason(s) For Visit Diagnoses Date Provider Providers Copied on Encounter [facility], [address] [address], [place], [id number], [place] tel:[phone] [facility] No Information 4 Jason Landers. [address] [facility], [address], [place], [place], [id number] , [place]. tel:[phone] Offic/outpt E&m [facility], [address] [address], [place], [id number], [place] tel:[phone] [facility] GI Symptoms or Concerns (chief complaint) Irregular bowel habitsGeneralized abdominal painRectal bleeding 4 Julius Sanders. [address] [facility], [address], [place], [id number] , [place]. [phone] Gage Noriega MD. tel:[phone] erring Provider: Referral Self, USE FOR SELF REFERRALS. [facility], [address] [address], [place], [id number], [place] tel:[phone] [facility] No Information 3 Jason Landers. [address] [facility], [address], [facility] [place], [id number] , [place]. [phone] Family History Family Member Type Diagnosis Age [...] interface ; Source: Other Registry Afluria Qd 7039-4805 administered Note: [facility] bi-directional interface ; Source: Other Registry Novel [id number], all formulations administered Note: [facility] bi-direct ional interface ; Source: Other Registry Novel [id number], all formulations administered Note: [facility] bi-direct ional [...] Registry Payers Payer name Insurance type Covered republican ID Authoriza tion(s) Blue Plus [id number] Social History Type Description Quantity Date Captured [...]
--- OUTSIDE RECORDS SUMMARY | 2024-12-12 12:31 | XMS_ITS | Clinical Summary ---
Author Organization [facility] [employer] [facility] Address [address] [place] [address] Care Team Providers Care Staff Nuclear Weapons Officer Name Role Phone Suzanne Li MD Primary Care Provider [phone] Allergies Active Allergy Reactions Criticality Noted Date [...] History: . Laterality Date RECONSTRUCTION OF NOSE 2014 TONSIL AND ADENOIDECTOMY 2014 #1 Problems (from 08/05/24 to present) No problems associated with this episode. Trisha Gibson RN ....08/05/2024 2:25 PM Estimated Date of Delivery Comme nts Yes 03/29/2025 Based on last me nstrual period of 06/22/2024 (Exact Date) Family History Medical History Relation Name Comments Good Health Father Ra partial blindness Maternal Uncle 1 Anjel Hypertension Mother Migraines Mother Stroke Mother ectopic Sister 1 Amy Good Health Sister 2 Krystal Relation Name Status Comments Brother [place] Alive Father Ra Alive Maternal Uncle 1 Anjel Alive Maternal Uncle 2 Sonido Alive Mother Sister 1 Miller Alive Sister 2 Krystal Alive Social History [...] Estimated Date of Delivery 08/05/2024 - Present (12/12/2024) 03/29/2025 (set by Trisha Gibson, RN on 08/05/2024 based on Last Menstrual Period [...] as well. Patient location (originating site city/state): [place], [place] Provider location (distant site city/state): [place], [place] Video/Phone start time (include am/pm designation): 1:08 PM Video/Phone end time (include am/pm designation): 2:18 PM SUBJECTIVE: Shanta Beaucahmp is a 24 y.o. 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 Name of Partner or [...] of estimated date of delivery: No Thalassemia (Albanian, Polish, Mediterranean, or background): MCV less than 80: No Neural tube defect (Meningomyelocele, Spina bifida, or Anencephaly): No Congenital heart defect: No Down syndrome: No Yoan-Sachs (Ashkenazi Jehovah'S Witness, Cajun, Hebrew [place]): No Allison disease (Ashkenazi Jehovah'S Witness): No Familial dysautonomia (Ashkenazi Jehovah'S Witness): No Sickle cell disease or trait (): No Hemophilia or other blood disorders: No Muscular dystrophy: No Cystic fibrosis: No Marcella's chorea: No Intellectual disability and/or autism: No [...] . - Provided online resources such as [facility] [facility] and [employer]. Discussed ziyw-lpj-taqcaty medications, and follow up. - Encouraged patient to call clinic at [phone] with any vaginal bleeding, fluid leaking from [...] Time Provider Department Center 09/09/2024 4:00 PM [facility] MD [facility] Trisha Gibson RN .................... 08/05/2024 [...] 07/29/2024 10:20 AM CDT Plan of Treatment Health Maintenance Due Date Last Done Comments Tetanus booster 2013 HPV series for age 9-45 (1 - 3-dose series) 2017 Hepatitis B series for 19+ ( 1 of 3 - 19+ 3-dose series) 2021 COVID-19 vaccine series ( - season) 2024 Influenza Vaccine (#1) 2024 RSV vaccine for adults or (1 - Risk 1-dose series) 02/01/2025 BMI (ht and wt on same day) for age 18+ 07/29/2025 07/29/2024 Depression screening for age 12+ 08/05/2025 08/05/2024, 07/29/2024 Chlamydia for age 16-24 08/11/2025 08/11/2024 Pap test for age 21-65 06/24/2026 06/25/2023 HIV for age 15-65 Completed 08/11/2024 Hepatitis C screening for ag e 18-79 Completed 08/11/2024 Pneumococcal series for age 6-49 Aged Out No longer eligible b ased on patient's age to complete this topic [...] of normal first in first trimester (HC) PRO SHOP ATTENDANT THIN PREP PAP SCREEN IMAGED Routine 06/25/2023 2:20 PM CDT from Last 3 Months or Most Recently Relevant to Health Maintenance Results * PRO SHOP ATTENDANT PROBE - GC CHLAMYDIA DNA PCR [DCP4508] (08/11/2024 3:33 PM CDT) CHLAMYDIA PROBE Negative 12:24 PM CDT [facility] N GONORRHOEAE PROBE Negative 08/12/2024 12:24 PM CDT [facility] Other URINE SPECIMEN / Unknown Non-Blood / Unknown 08/11/2024 3:33 PM CDT 08/11/2024 3:33 PM CDT Suzanne Li MD MICROBIOLOGY Final Resul t [facility] [address] [place] [address], [place] * ANTI HCV (08/11/2024 3:28 PM CDT) HEPATITIS C ANTIBODY NON-REACTI VE NON-REACT B[place] [facility] Comment: HCV antibody was non-reactive. There is no laboratory evidence of HCV infection. In most cases, no further action is required. However, if recent HCV exposure is suspected, a test for HCV RNA (test code 90836) is suggested. For additional information please refer to http://education.StarGen/faq/IFW69i9 (This link is being provided for informational/ educational purposes only.) Blood BLOOD SPECIMEN / Unknown 08/11/2024 3:28 PM CDT 08/11/2024 3:28 PM CDT Suzanne Li MD SEND OUTS Final Resul t [facility] [address] [place] [address], [facility] [address] [place] [address] * ANTI HIV 1/2 (08/11/2024 3:28 PM CDT) HIV AG/AB, 4TH GEN NON-REACT [place]URTON NON-REACT BUR[facility] [place] Comment: HIV-1 antigen and HIV-1/HIV-2 antibodies were [...] purpose. For additional information please refer to http://education.StarGen/faq/PMC003 (This link is being provided for informational/ educational purposes only.) The performance of this assay has not been clinically validated in patients less than 2 years old. Blood BLOOD SPECIMEN / Unknown 08/11/2024 3:28 PM CDT 08/11/2024 3:28 PM CDT us Suzanne Li MD SEND OUTS Final Resul t [facility] [address] [place] [address], [facility] [address] [place] [address] * PRO SHOP ATTENDANT THIN PREP PAP SCREEN IMAGED (06/25/2023 2:20 PM CDT) Case Report Gynecologic Cytology Report Case: [id number] Authorizing Provider: Shaista Donato NP Collected: 06/25/2023 1420 Ordering Location: [facility] Received: 06/27/2023 0947 First Screen: Fernanda Dickens Specimen: PRO SHOP ATTENDANT ThinPrep Vial Screening, Cervical 07/03/2023 11:28 AM CDT [facility] INTERPRETATION/ RESULT NEGATIVE FOR INTRAEPITHELIAL LESION OR MALIGNANCY (NIL) (none) 07/03/2023 11:28 AM CDT [facility] at 1128 CDT ORGANISM(S) 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 07/03/2023 11:28 AM CDT [facility] SPECIMEN ADEQUACY Satisfactory for evaluation Endocervical component present 07/03/2023 11:28 AM CDT [email or web address] HPV REQUEST HPV not requested 2023 11:28 AM CDT [facility] Date of LMP 06/09/2023 07/03/2023 11:28 AM CDT [facility] Last Pap Result First Pap/Unknown 11:28 AM CDT [facility] Abnormal Pap or [place]al[place] Bx in last 5 years No 07/03/2023 11:28 AM CDT [facility] Menstrual Status Regular Periods 07/03/2023 11:28 AM CDT [facility] Escalante Bx Done Today No 07/03/2023 11:28 AM CDT [facility] Additional Information 07/03/2023 11:28 AM CDT [facility] Comment: Interpreted at [facility] - [address], [place] [address] Automated Review Successful 07/03/2023 11:28 AM T [facility] Comment:Specimen processed s uccessfully by automated horse identifier device, ThinPrep Imaging System, [employer] Note The pap test is a screening technique, not a diagnostic procedure. It is used primarily to screen for squamous cancers and precursor lesions. Published studies have shown that it is subject to both false negative and false positive results. The pap test should not be used as the sole means to diagnose or exclude pre-malignant and malignant lesions. 07/03/2023 11:28 AM T [facility] Other (Cervical) 06/25/2023 2:20 PM CDT 06/27/2023 9:47 AM CDT us Shaista Donato NP PATHOLOGY/CYTOLOGY Final Result [facility] [address] [place] [address], [place] from Last 3 Months or Most Recently Relevant to Health Maintenance Insurance [facility] [address] Care Teams Staff Nuclear Weapons Officer Relationship Specialty Start Date End Date Suzanne Li MD [address] [place] [address] PCP - General Family Practice 10/26/24
[2024-12-12 12:37] VITALS: BP 127/84; PULSE 63; RESP 18; TEMP 36.6; O2SAT 95; BMI 22.3
--- NOTE | 2024-12-12 12:53 | CRLHL7_ITS ---
For Patients: As a result of the Century Cures Act, medical imaging exams and procedure reports are released immediately into your electronic medical record. You may view this report before your referring provider. If you have questions, please contact your health care provider. INDICATION: Hurt back while skydiving COMPARISON: None. TECHNIQUE: Three view cervical spine radiographs including AP, lateral, open-mouth odontoid. FINDINGS: Normal vertebral body segmentation and formation. No fracture. Normal alignment. No disc space narrowing. No facet arthritis. Normal bone mineralization. No focal bone lesions. Cervical prevertebral soft tissues are normal. IMPRESSION: Normal cervical spine radiographs. Dictated by Matilda Houser MD @ 12/12/2024 1:53:09 PM (Electronically Signed)
--- NOTE | 2024-12-12 12:53 | CRLHL7_ITS ---
For Patients: As a result of the Century Cures Act, medical imaging exams and procedure reports are released immediately into your electronic medical record. You may view this report before your referring provider. If you have questions, please contact your health care provider. INDICATION: Hurt back while skydiving COMPARISON: Same day cervical spine radiograph TECHNIQUE: Two view thoracic spine radiographs including AP and lateral. FINDINGS: Normal vertebral body segmentation and formation. No fracture. Mild thoracic curvature in this position. No listhesis. No disc space narrowing. No facet arthritis. Normal bone mineralization. No focal bone lesions. Paraspinal soft tissues are unremarkable. IMPRESSION: Mild spinal curvature may be positional or related to scoliosis. No acute findings in the thoracic spine. Dictated by Matilda Houser MD @ 12/12/2024 1:54:41 PM (Electronically Signed)
--- NOTE | 2024-12-12 13:13 | ED.BACK ---
HPI - Back Pain/Injury General Date Seen: 12/12/24 Chief Complaint: Back Injury/Pain Stated Complaint: Hurt back marcellus diving Time Seen by Provider: 12/12/24 12:42 Source: patient Mode of arrival: ambulatory Limitations: no limitations History of Present Illness HPI Narrative: Patient is a 24-year-old female presenting for neck and back pain. She states a couple hours prior to arrival she was skydiving when she had an issue issue causing to do poorly too fast causing a severe deceleration she states. 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 Has pain in her upper midline back going into her left shoulder along with some neck pain. Has full range of motion. Was able to drive herself here and walk. Took ibuprofen with minimal improvement. States she felt like there was some popping and cracking when it occurred. Related Data Home Medications ?Medication ?Instructions ?Recorded ?Confirmed No Known Home Medications 12/12/24 12/12/24 Allergies Allergy/AdvReac Type Severity Reaction Status Date / Time adhesive Allergy Unknown Rash Verified 12/12/24 12:37 latex Allergy Unknown Rash Verified 12/12/24 12:37 Review of Systems Narrative: Pertinent systems reviewed and were negative unless stated in HPI PFSH [facility] Medical History (Updated 12/12/24 @ 14:53 by Hardik Blanco DO) Incomplete miscarriage ?O03.4 - Incomplete spontaneous without complication (ICD-10) History of sexually transmitted disease (11/24/20) ?Z86.19 - Personal history of other infectious and parasitic diseases (ICD-10) Purposeful non-suicidal drug ingestion (2019) ?T50.902A - Poisoning by unspecified drugs, medicaments and biological substances, intentional self-harm, initial encounter (ICD-10) Depression ?F32.A - Depression, unspecified (ICD-10) Asthma ?J45.909 - Unspecified asthma, uncomplicated (ICD-10) Anxiety ?F41.9 - Anxiety disorder, unspecified (ICD-10) Surgical History History of nasal septoplasty (03/28/17) ?Z98.890 - Other specified postprocedural states (ICD-10) History of tonsillectomy and adenoidectomy (03/28/17) ?Z90.89 - Acquired absence of other organs (ICD-10) Social History Smoking Status: Current every day smoker Do you use any of these nicotine containing products: E-Cigarettes and Vaping Products Second hand tobacco smoke exposure: No How often do you have a drink containing alcohol: monthly or less How many standard drinks containing alcohol do you have on a typical day: 3 or 4 How often do you have six or more drinks on one occasion: Less than monthly AUDIT-C Alcohol total score: 3 Non-prescribed substance use: denies use service: No Exam Narrative: Exam Narrative: Const: Well-nourished, Well-developed, in mild distress Eyes: PERRL, no conjunctival injection, and symmetrical lids HENT: Atraumatic external nose and ears. Moist mucous membranes. Neck: Symmetric, trachea midline, No thyromegaly. Mild tenderness to her upper Thoracics both paraspinal and midline. Mild tenderness to her cervical spine throughout. Full range of motion noted Skin: Warm, Dry. No rashes or lesions. Neuro: Normal Muscle tone, No focal neurological deficits. Psych: Awake, Alert, & Oriented x3. Appropriate mood and affect. Const: Vital Signs, click to edit/add: Vital Signs - 24 hr 12/12/24 12:37 Temperature 97.8 F Pulse Rate [Pulse Oximeter] 63 Respiratory Rate 18 Blood Pressure [Ri ght Upper Arm] 127/84 Pulse Oximetry 95 Course Vital Signs Vital signs: Initial Vital Signs Temperature 97.8 F 12/12/24 12:37 Temperature Source Temporal Artery Scan 12/12/24 12:37 Pulse Rate 63 12/12/24 12:37 Respiratory Rate 18 12/12/24 12:37 Blood Pressure 127/84 12/12/24 12:37 Blood Pressure Mean 98 12/12/24 12:37 Pulse Oximetry 95 12/12/24 12:37 Vital Signs Temperature 97.8 F 12/12/24 12:37 Pulse Rate 63 12/12/24 12:37 Respiratory Rate 18 12/12/24 12:37 Blood Pressure 127/84 12/12/24 12:37 Pulse Oximetry 95 12/12/24 12:37 Temperature 97.8 F 12/12/24 12:37 Pulse Rate 63 12/12/24 12:37 Respiratory Rate 18 12/12/24 12:37 Blood Pressure 127/84 12/12/24 12:37 Pulse Oximetry 95 12/12/24 12:37 MDM - Back Pain/Injury MDM Narrative Medical decision making narrative: Patient is a 24-year-old female presenting to the emergency department for neck and back pain. Considering she describes this as a very 7 deceleration compared to normally with her skydiving I will do x-rays of her neck in cervical spine to look for any abnormalities. X-rays reviewed by myself and the radiologist showed no acute concerning abnormalities. After this she did also mention she is having some chest pain. Due to that I will do EKG and troponin to look for any signs of blunt cardiac injury. EKG interpreted independently by myself shows no acute concerning abnormalities. Troponin within normal limits. At this time I believe she is safe for discharge. Will prescribe her Toradol via instymeds. She is agreeable to this plan Lab Data Labs: Lab Results 12/12/24 Range/Units 14:30 POC Troponin I 0.00 L (0.01-0.04) ng/ml Imaging Data Cervical spine x-ray: Attestation: I have reviewed the pertinent imaging results. Radiologist's impression: Normal cervical spine radiographs. Dictated by Matilda Houser MD @ 12/12/2024 1:53:09 PM Thoracic spine x-ray: Attestation: I have reviewed the pertinent imaging results. Radiologist's impression: Mild spinal curvature may be positional or related to scoliosis. No acute findings in the thoracic spine. Dictated by Matilda Houser MD @ 12/12/2024 1:54:41 PM ECG Data Attestation: I personally reviewed and interpreted this ECG as follows: Prior ECG tracings: not available for review Interpretation: Normal sinus rhythm with rate 74 beats per minute, normal intervals, normal axis, no ST or T-wave abnormalities. Discharge Plan Discharge Clinical Impression: Muscle strain Patient Disposition: Home, Self-Care Condition: Stable Instructions: Cervical Strain (ED) Additional Instructions: I believe your symptoms are most likely related to a muscle strain. Take Toradol as needed for pain. While taking Toradol do not take other NSAID such as naproxen or ibuprofen as they are the same class of drugs. Follow-up with the primary care provider. Return for new or worsening symptoms. You will likely be more sore tomorrow. Prescriptions: No Action No Known Home Medications Follow Up/Referrals: Miguel Angel Noriega MD [Primary Care Provider, Family Practice] Stand Alone Forms: [employer] Info Instructions
[2024-12-12 14:43] LABS: Troponin, Point-of-Care* 0.00 ng/ml (0.01-0.04)
== END 2024-12-12 15:11 | disposition home or self-care (01) ==
PROVIDERS: Emergency Provider Student in an Organized Health Care Education/Training Program; PCP Family Medicine
DX: S16.1XXA Strain of muscle, fascia and tendon at neck level, initial encounter (principal); V97.22XA Parachutist injured on landing, initial encounter
CPT/HCPCS: 36415; 72040; 72070; 84484; 93005; 99283; 99284

== ENCOUNTER 2025-01-11 13:32 | Outpatient (CLI) | payer BC, SELFPAY ==
--- NOTE | 2025-01-11 13:45 | CRLHL7_ITS ---
For Patients: As a result of the Century Cures Act, medical imaging exams and procedure reports are released immediately into your electronic medical record. You may view this report before your referring provider. If you have questions, please contact your health care provider. INDICATION: Mid back pain. Myalgia TECHNIQUE: Noncontrast sagittal T1, T2, STIR and axial GRE sequences are provided. No comparisons. FINDINGS: The overall stature, alignment and intrinsic marrow signal of the thoracic spine is within normal limits. Thoracic cord is normal. No suspicious disc bulges or protrusions. No suspicious central canal or foraminal narrowing. IMPRESSION: Unremarkable MRI of the thoracic spine. Dictated by Jarvis Dunn MD @ 01/11/2025 6:00:28 PM (Electronically Signed)
== END 2025-01-11 13:33 | disposition home or self-care (01) ==
PROVIDERS: PCP Family Medicine; Visit Provider Family Medicine
DX: M79.18 Myalgia, other site (principal)
CPT/HCPCS: 72146